=== PATIENT | female | born 1955 | race Caucasian/White ===

== ENCOUNTER 2018-11-16 14:57 | Inpatient (IN) ==
[2018-11-16] MEDS ORDERED: NS 1,000 ML IV SCH (15:15)
[2018-11-16] MEDS: LEVAQUIN 500 MG/D5W 500 MG/100 ML IVPB IV SCH ×2 (17:06→17:45)
[2018-11-16] MEDS ORDERED: NS 1,000 ML IV ONE (17:18)
[2018-11-16] MEDS ORDERED: HUMULIN R IV ONE (17:18)
[2018-11-16 17:35] LABS: ALLEN TEST YES; BE -9.5 mmoll (-3.0-3.0); BLOOD TYPE ARTERIAL; HCO3-(ACT) 17.4 mmoll (20.0-26.0); METHB 0.5 % (0.0-1.5); O2(CT) 20.1 mL/dL (15.0-23.0); O2HB 92.3 % (95.0-99.0); PCO2(98.6) 32 mmHg (35-45); PO2(98.6) 73 mmHg (60-100); SAMPLE BLOOD; SAO2 94.4 % (95.0-100.0); THB 15.5 g/dL (11.5-17.4)
[2018-11-16 17:40] LABS: MODALITY CANNULA
[2018-11-16 17:48] LABS: BASO# 0.05 X1000 (0.0-0.2); BASO% 0.3 % (0.0-0.8); EOS# 0.04 X1000 (0.0-0.7); EOS% 0.3 % (0.0-10.0); HEMATOCRIT 46.1 % (37.0-47.0); IMM GRAN# 0.12 X1000 (0.0-0.04); IMM GRAN% 0.8 % (0.0-0.5); LYMPH# 1.72 X1000 (1.2-3.4); LYMPH% 10.8 % (20.5-51.1); MCH 30.4 PG (27-31); MCHC 32.5 g/dL (33-37); MCV 93.3 FL (81-99); MONO# 1.61 X1000 (0.11-0.59); MONO% 10.1 % (1.7-9.3); MPV 11.5 FL (7.4-10.4); NEUT# 12.38 X1000 (1.4-6.5); NEUT% 77.7 % (42.2-75.2); PLT 393 X1000 (130-400); RBC 4.94 XMIL (4.2-5.4); RDW 13.5 % (11.5-14.5); WBC 15.92 X1000 (4.8-10.8)
[2018-11-16] MEDS ORDERED: TESSALON PO PRN (18:01)
[2018-11-16] MEDS ORDERED: ZOFRAN IV PRN (18:03)
[2018-11-16 18:19] LABS: CALCIUM 9.9 mg/dL (8.8-10.2); CREATININE 1.7 mg/dL (0.5-0.9); MAGNESIUM 1.7 mg/dL (1.5-2.7)
[2018-11-16] MEDS: NS 1,000 ML IV SCH (18:46)
[2018-11-16] MEDS: LOPRESSOR PO SCH ×2 (19:44→21:49)
[2018-11-16] MEDS: ATIVAN PO SCH ×2 (19:44→21:48)
[2018-11-16] MEDS ORDERED: HUMALOG SUBQ SCH (21:00)
[2018-11-16 21:10] LABS: CALCIUM 9.3 mg/dL (8.8-10.2)
[2018-11-16 21:13] LABS: AGAP 26; BUN 6 mg/dL (8-22); CHLORIDE 97 mmol/L (98-107); COSMO 261; CREATININE 0.6 mg/dL (0.5-0.9); ESTIMATED GFR > 60; GLUCOSE 176 mg/dL (70-104); POTASSIUM 4.8 mmol/L (3.5-5.1); SODIUM 129 mmol/L (136-145); TCO2 6 mmol/L (25-35)
[2018-11-16] MEDS: DULERA 100 MCG/5 MCG INHALER INH SCH (21:17)
--- NOTE | 2018-11-16 21:38 | HISTORY AND PHYSICAL ---
CHIEF COMPLAINT: Cough and fever. HISTORY OF PRESENT ILLNESS: The patient is a 63-year-old white female followed by Dr. Hendricks, who [facility] today with complaints of about a week history of illness. She has been feeling worse and had cough slightly productive, and in the last couple days had some fever. She has also developed over the past day and a half several episodes of emesis, without diarrhea. No significant abdominal pain. Does note on questioning that she has had uncontrolled diabetes mellitus, on one occasion where her blood sugar was extremely high, requiring admission. Her blood sugar was noted to be in the 700s at [facility] with a CO2 of 14 over there. White count was elevated there at 15,000 and she was noted to have a left pneumonia. MEDICATIONS: Prior to admission, Vasotec 20 mg p.o. daily; Lipitor 80 mg p.o. daily; [place] 5 one p.o. t.i.d. p.r.n. pain; Dulera 100 one puff b.i.d.; Tessalon Perles 100 mg p.o. t.i.d. p.r.n. cough; metformin ER 500 mg p.o. t.i.d.; Basaglar insulin 50 units subcutaneously at bedtime; Voltaren 75 mg p.o. b.i.d.; Ativan 0.5 mg p.o. b.i.d.; Lopressor 100 mg p.o. b.i.d.; omeprazole 40 mg p.o. daily; Flexeril 10 mg p.o. at bedtime p.r.n. ALLERGIES: Morphine. PAST MEDICAL HISTORY: 1. Insulin-requiring diabetes mellitus, with apparent history of this being uncontrolled in the past. 2. Hypertension. 3. Hypercholesterolemia. 4. GERD. 5. Possible COPD. 6. History of right breast cancer, status post lumpectomy and radiation treatments about 17 years ago. 7. History per old records of possible pancreatic pseudocyst or the like remotely. PAST SURGICAL HISTORY: 1. TAHBSO. 2. Right breast lumpectomy due to breast cancer. 3. . SOCIAL HISTORY: The patient is a longstanding smoker and continues to smoke. 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 Denies alcohol use. She is . She lives in [place]. She has children. FAMILY HISTORY: Noncontributory. REVIEW OF SYSTEMS: Negative except as above. PHYSICAL EXAMINATION: VITAL SIGNS: Temperature 98.8 degrees, pulse 122, respirations 17, blood pressure 157/65, O2 saturation on room air 90%. Weight 135, height 5 feet 6 inches tall. GENERAL: Elderly white female in mild distress. SKIN: Warm and dry. No rashes or skin breakdown. HEENT: PERRL, EOMI. Sclerae anicteric. OP: No major redness. NECK: No LA, TMG or bruits. CV: Tachycardia, regular rhythm. No murmur. LUNGS: Diminished breath sounds at the bases. Cannot rule out slightly worse on the left. Cannot rule out rare wheeze. ABDOMEN: Soft. Active bowel sounds. No mass or organomegaly. BREASTS/PELVIC/RECTAL: Deferred. EXTREMITIES: No calf tenderness, cords or edema. Peripheral pulses 2+. Mild OA changes noted in the hands and diffusely. NEUROLOGIC: CN 2 through 12 intact. Nonfocal. LABORATORY DATA: White count 15.92, hemoglobin 15, hematocrit 46.1, MCV 93, platelets 393,000, neutrophils 77, lymphocytes 10.8. ABG on 2 L shows pH 7.30, pCO2 of 32, pO2 of 73, HCO3 is 17, O2 saturation 94.4%. Lactate 1.7. Sodium 123, potassium 6.0, chloride 85, CO2 is 17, BUN 39, creatinine 1.7, anion gap 21, glucose 612, calcium 9.9, phosphorus 4.2, magnesium 1.7. Ammonia 18. Serum acetone level shows small. DIAGNOSTIC DATA: Chest x-ray by report from [facility] shows a pneumonia unilateral. ASSESSMENT: 1. Pneumonia. 2. Diabetic ketoacidosis. 3. Probable chronic obstructive pulmonary disease with ongoing smoking. 4. Hypertension. 5. Hypercholesterolemia. 6. History of pancreatic cyst, remote. 7. History of right breast cancer, status post lumpectomy and radiation treatment. 8. Pseudohyponatremia. 9. Hyperkalemia associated with diabetic ketoacidosis. PLAN: We will give her 1 L bolus of normal saline and we will continue normal saline at 150 mL/h. She has received 10 units IV regular insulin and we will give her sliding scale Humalog insulin q.4 hours. Monitor Accu-Chek q.2 hours and BMPs q.[address] will not place her on an insulin drip at this time unless we have difficulty improving her situation. She has received some Levaquin. We will continue that. We will check blood cultures x2 that have been ordered. Repeat chest x-ray. Continue her home medications of Tessalon, Vasotec, [place], Ativan, Lopressor, Dulera, NicoDerm patch, Prilosec. Give her Zofran as needed for nausea and vomiting, Gus. cc: MD Shai Watts MD
[2018-11-16] MEDS: HUMALOG SUBQ SCH (21:49)
[2018-11-17] MEDS ORDERED: D50W SYRINGE IV ONE (00:18)
[2018-11-17] MEDS: HUMALOG SUBQ SCH ×4 (00:32→14:11)
[2018-11-17] MEDS: NS 1,000 ML IV SCH ×4 (00:53→23:18)
[2018-11-17 05:58] LABS: BASO# 0.04 X1000 (0.0-0.2); BASO% 0.3 % (0.0-0.8); EOS% 0.8 % (0.0-10.0); HEMATOCRIT 44.7 % (37.0-47.0); HEMOGLOBIN 14.8 g/dL (12.0-16.0); IMM GRAN# 0.09 X1000 (0.0-0.04); IMM GRAN% 0.7 % (0.0-0.5); LYMPH# 2.74 X1000 (1.2-3.4); LYMPH% 21.7 % (20.5-51.1); MCH 31.4 PG (27-31); MCHC 33.1 g/dL (33-37); MCV 94.7 FL (81-99); MONO# 1.81 X1000 (0.11-0.59); MONO% 14.3 % (1.7-9.3); NEUT# 7.85 X1000 (1.4-6.5); NEUT% 62.2 % (42.2-75.2); PLT 306 X1000 (130-400); RBC 4.72 XMIL (4.2-5.4); RDW 13.8 % (11.5-14.5); WBC 12.63 X1000 (4.8-10.8)
[2018-11-17] MEDS: PRILOSEC PO SCH (06:11)
[2018-11-17 06:20] LABS: C REACTIVE PROT QUANT 78.32 mg/L (0.00-5.00); CALCIUM 8.9 mg/dL (8.8-10.2); CREATININE 1.3 mg/dL (0.5-0.9); POTASSIUM 5.1 mmol/L (3.5-5.1)
[2018-11-17] MEDS: DULERA 100 MCG/5 MCG INHALER INH SCH ×2 (07:50→21:15)
[2018-11-17] MEDS: VASOTEC PO SCH (09:42)
[2018-11-17] MEDS: LOPRESSOR PO SCH ×2 (09:42→20:05)
[2018-11-17] MEDS: NICODERM PATCH TD SCH (09:42)
[2018-11-17] MEDS: ATIVAN PO SCH ×2 (09:42→20:05)
[2018-11-17] MEDS ORDERED: POTASSIUM CHLORIDE 10 MEQ in NS 1,000 ML IV SCH (10:00)
--- NOTE | 2018-11-17 10:10 | Diag Imaging Result Doc PS360 ---
EXAM: CHEST-2 VIEWS INDICATION: hypoxia TECHNIQUE: 2 views COMPARISON: 04/16/2018 FINDINGS: There are stable metallic clips projecting over the right chest wall. The lungs are grossly clear. There is no discrete pleural fluid collection or pneumothorax. The cardiomediastinal silhouette and central vasculature are grossly unremarkable. IMPRESSION: No evidence of acute pathology by plain radiograph. Electronically signed by Grayson Vazquez 11/17/2018 10:08 AM
--- NOTE | 2018-11-17 10:17 | PROGRESS NOTE ---
DATE: 11/17/2018 SUBJECTIVE: Patient says she has had no nausea or vomiting and feels better overall. She is having a more productive cough, she says. OBJECTIVE: Vital signs: Afebrile, pulse 80, respirations 17, blood pressure 169/74, O2 saturation on 4 L 92%. Cardiovascular: RRR without murmur. Lungs: Distant breath sounds diffusely and diminished breath sounds at the lung bases with occasional wheezes bilaterally. Good air movement. Abdomen: Soft, nontender, nondistended. Extremities: No calf tenderness, cords, or edema. Neurologic: Nonfocal cranial nerves intact. Patient is alert and oriented x4. DIAGNOSTIC STUDIES: White count 12 down from 15 yesterday, hemoglobin 14.8, platelets 306,000. Sodium 130, potassium 5.1, chloride 102, CO2 of 13, BUN 37, creatinine 1.3, glucose 271, blood sugar is mainly in the 200s, calcium 8.9. C-reactive protein 78. Chest x-ray was done [facility], and I was told it showed unilateral pneumonia. She is supposed to go down now for another chest x-ray. They are taking her at this moment at my direction. ASSESSMENT: 1. Diabetic ketoacidosis (DKA), slowly improving. 2. Pneumonia. 3. Probable chronic obstructive pulmonary disease (COPD). 4. Tobacco abuse. 5. Hypertension. 6. Hypercholesterolemia. 7. History of pancreatic cyst, remote. 8. History of right breast cancer. 9. Pseudohyponatremia. 10. Hyperkalemia, improved. PLAN: Change the patient to normal saline with 10 mEq of KCl per liter and monitor her potassium and CO2 closely. We are going to feed her, as she is not having any difficulty with nausea and vomiting, and if she does well with that, that should allow her blood sugars to remain up so she will continue IV fluids and insulin. We are trying to keep from putting her on an IV insulin drip, but if unsuccessful, that will need to be done later on today. Continue q.4 h. BMPs and Accu-Cheks q.2 h.. Continue SSI with Accu-Cheks q.4 h. Blood cultures x2 are negative thus far. She remains on Levaquin and DuoNeb, and we will continue those in addition to Tessalon, Vasotec, [place], Ativan, Lopressor, Dulera, NicoDerm patch, and Prilosec. Await the results of the chest x- ray that is being done now. cc: MD Shai Watts MD
[2018-11-17 14:41] LABS: AGAP 8; BUN 26 mg/dL (8-22); CALCIUM 5.6 mg/dL (8.8-10.2); CHLORIDE 118 mmol/L (98-107); COSMO 290; CREATININE 0.7 mg/dL (0.5-0.9); ESTIMATED GFR > 60; GLUCOSE 164 mg/dL (70-104); POTASSIUM 6.3 mmol/L (3.5-5.1); SODIUM 141 mmol/L (136-145); TCO2 15 mmol/L (25-35)
[2018-11-17] MEDS ORDERED: HUMULIN R 100 UNIT in NS 99 ML IV SCH (15:07)
[2018-11-17] MEDS ORDERED: SODIUM PHOSPHATE 30 MMOL in D5W 250 ML IV PRN (15:07)
[2018-11-17] MEDS ORDERED: D50W SYRINGE IV PRN (15:07)
[2018-11-17] MEDS ORDERED: HUMULIN R IV ONE (15:07)
[2018-11-17] MEDS ORDERED: POTASSIUM CHLORIDE 20% LIQUID PO PRN (15:07)
[2018-11-17] MEDS: D5 NS 1,000 ML IV SCH ×2 (15:38→23:18)
[2018-11-17 15:42] LABS: PHOSPHORUS 1.6 mg/dL (2.7-4.5)
[2018-11-17] MEDS: LEVAQUIN 500 MG/D5W 500 MG/100 ML IVPB IV SCH (16:04)
[2018-11-17] MEDS: MAGNESIUM SULFATE 2 GM/S.W.I. 2 GM/50 ML IVPB IV PRN (16:12)
[2018-11-17 16:45] LABS: ALLEN TEST YES; BE -3.5 mmoll (-3.0-3.0); BLOOD TYPE ARTERIAL; HCO3-(ACT) 21.9 mmoll (20.0-26.0); METHB 0.5 % (0.0-1.5); O2(CT) 17.5 mL/dL (15.0-23.0); PCO2(98.6) 33 mmHg (35-45); PO2(98.6) 53 mmHg (60-100); SAMPLE BLOOD; SAO2 89.3 % (95.0-100.0); THB 14.1 g/dL (11.5-17.4)
[2018-11-17 16:47] LABS: MODALITY ROOM AIR
[2018-11-17 18:10] LABS: CALCIUM 8.6 mg/dL (8.8-10.2); CREATININE 1.4 mg/dL (0.5-0.9); POTASSIUM 4.5 mmol/L (3.5-5.1)
[2018-11-17 18:20] LABS: MAGNESIUM 1.7 mg/dL (1.5-2.7); PHOSPHORUS 1.9 mg/dL (2.7-4.5)
[2018-11-17 21:21] LABS: CALCIUM 8.4 mg/dL (8.8-10.2); CREATININE 1.5 mg/dL (0.5-0.9); MAGNESIUM 2.4 mg/dL (1.5-2.7); PHOSPHORUS 2.4 mg/dL (2.7-4.5); POTASSIUM 4.5 mmol/L (3.5-5.1)
[2018-11-17 21:22] LABS: ALLEN TEST YES; BE -4.9 mmoll (-3.0-3.0); BLOOD TYPE ARTERIAL; HCO3-(ACT) 20.9 mmoll (20.0-26.0); METHB 0.4 % (0.0-1.5); O2(CT) 17.6 mL/dL (15.0-23.0); O2HB 90.9 % (95.0-99.0); PCO2(98.6) 35 mmHg (35-45); PO2(98.6) 59 mmHg (60-100); SAMPLE BLOOD; SAO2 91.8 % (95.0-100.0); THB 13.8 g/dL (11.5-17.4); pH(98.6) 7.36 (7.35-7.45)
[2018-11-17 21:23] LABS: MODALITY CANNULA
[2018-11-17] MEDS: POTASSIUM CHLORIDE 10% LIQUID PO PRN (21:26)
[2018-11-18 01:47] LABS: MAGNESIUM 2.1 mg/dL (1.5-2.7); PHOSPHORUS 2.2 mg/dL (2.7-4.5)
[2018-11-18 02:37] LABS: CALCIUM 8.6 mg/dL (8.8-10.2); CREATININE 1.4 mg/dL (0.5-0.9); POTASSIUM 4.8 mmol/L (3.5-5.1)
[2018-11-18] MEDS: POTASSIUM CHLORIDE 10% LIQUID PO PRN ×5 (02:44→22:15)
[2018-11-18 03:18] LABS: URINE SOURCE CLEAN CATCH
[2018-11-18 03:52] LABS: BILIRUBIN URINE NEGATIVE (NEGATIVE); BLOOD URINE NEGATIVE (NEGATIVE); COLOR YELLOW; GLUCOSE URINE NEGATIVE (NEGATIVE); KETONE URINE NEGATIVE (NEGATIVE); LEUKOCYTES URINE TRACE (NEGATIVE); NITRITE URINE NEGATIVE (NEGATIVE); PH URINE 5.5; PROTEIN URINE TRACE mg/dL (NEGATIVE); SP GRAVITY URINE 1.002; TURBIDITY URINE CLEAR (CLEAR); UROBILINOGEN URINE NORMAL (NORMAL)
[2018-11-18 03:53] LABS: UR EPITHELIAL CELLS <10 /HPF (<10); URINE BACTERIA 4+ /HPF; URINE RBC <10 /HPF (<10)
[2018-11-18 05:19] LABS: ALLEN TEST YES; BLOOD TYPE ARTERIAL; HCO3-(ACT) 20.8 mmoll (20.0-26.0); METHB 0.3 % (0.0-1.5); O2(CT) 19.1 mL/dL (15.0-23.0); O2HB 91.5 % (95.0-99.0); PCO2(98.6) 36 mmHg (35-45); PO2(98.6) 59 mmHg (60-100); SAMPLE BLOOD; SAO2 92.3 % (95.0-100.0); THB 14.9 g/dL (11.5-17.4); pH(98.6) 7.35 (7.35-7.45)
[2018-11-18 05:21] LABS: MODALITY CANNULA
[2018-11-18 05:27] LABS: BASO# 0.04 X1000 (0.0-0.2); BASO% 0.3 % (0.0-0.8); EOS% 0.8 % (0.0-10.0); HEMATOCRIT 43.1 % (37.0-47.0); IMM GRAN# 0.07 X1000 (0.0-0.04); IMM GRAN% 0.6 % (0.0-0.5); LYMPH# 2.63 X1000 (1.2-3.4); LYMPH% 21.6 % (20.5-51.1); MCH 30.2 PG (27-31); MCHC 32.5 g/dL (33-37); MCV 92.9 FL (81-99); MONO# 1.66 X1000 (0.11-0.59); MONO% 13.6 % (1.7-9.3); MPV 11.2 FL (7.4-10.4); NEUT# 7.68 X1000 (1.4-6.5); NEUT% 63.1 % (42.2-75.2); PLT 314 X1000 (130-400); RBC 4.64 XMIL (4.2-5.4); RDW 13.8 % (11.5-14.5); WBC 12.18 X1000 (4.8-10.8)
[2018-11-18 05:44] LABS: MAGNESIUM 1.9 mg/dL (1.5-2.7); PHOSPHORUS 2.2 mg/dL (2.7-4.5)
[2018-11-18 05:45] LABS: CALCIUM 8.4 mg/dL (8.8-10.2); CREATININE 1.2 mg/dL (0.5-0.9); POTASSIUM 4.8 mmol/L (3.5-5.1)
[2018-11-18] MEDS: PRILOSEC PO SCH (05:59)
[2018-11-18] MEDS: NS 1,000 ML IV SCH ×3 (07:21→21:15)
[2018-11-18] MEDS: D5 NS 1,000 ML IV SCH ×3 (07:21→22:43)
[2018-11-18] MEDS: VASOTEC PO SCH (09:20)
[2018-11-18] MEDS: ATIVAN PO SCH ×2 (09:20→21:22)
[2018-11-18] MEDS: NICODERM PATCH TD SCH (09:20)
[2018-11-18] MEDS: LOPRESSOR PO SCH ×2 (09:20→21:22)
[2018-11-18 09:27] LABS: MAGNESIUM 1.9 mg/dL (1.5-2.7)
[2018-11-18 09:41] LABS: O2HB 88.6 % (95.0-99.0)
[2018-11-18 09:42] LABS: CALCIUM 8.4 mg/dL (8.8-10.2); CREATININE 1.2 mg/dL (0.5-0.9); POTASSIUM 4.9 mmol/L (3.5-5.1)
[2018-11-18] MEDS: DUONEB (A & A) INH PRN ×3 (11:19→22:23)
[2018-11-18] MEDS: DULERA 100 MCG/5 MCG INHALER INH SCH ×2 (11:19→22:22)
[2018-11-18 13:46] LABS: MAGNESIUM 1.6 mg/dL (1.5-2.7); PHOSPHORUS 2.3 mg/dL (2.7-4.5)
[2018-11-18 13:52] LABS: CALCIUM 8.2 mg/dL (8.8-10.2); CREATININE 1.1 mg/dL (0.5-0.9); POTASSIUM 4.6 mmol/L (3.5-5.1)
[2018-11-18] MEDS: MAGNESIUM SULFATE 2 GM/S.W.I. 2 GM/50 ML IVPB IV PRN (14:31)
[2018-11-18 17:59] LABS: MAGNESIUM 4.3 mg/dL (1.5-2.7); PHOSPHORUS 2.1 mg/dL (2.7-4.5)
[2018-11-18 18:02] LABS: CALCIUM 8.5 mg/dL (8.8-10.2); CREATININE 1.2 mg/dL (0.5-0.9); POTASSIUM 4.8 mmol/L (3.5-5.1)
[2018-11-18] MEDS: LEVAQUIN 500 MG/D5W 500 MG/100 ML IVPB IV SCH (18:19)
[2018-11-18] MEDS: NORCO-5 PO PRN (19:09)
[2018-11-18] MEDS: BASAGLAR SUBQ SCH (21:21)
--- NOTE | 2018-11-18 21:26 | PROGRESS NOTE ---
DATE: 11/18/2018 63-year-old white female patient of Dr. Hendricks admitted over the weekend for COPD exacerbation, DKA. I appreciate Dr. Grigsby's input. Patient was seen in [facility] clinic. Initial blood sugar 700. She was also azotemic. Patient is on DKA protocol on IV fluids and insulin drip 1.5 units/hour. REVIEW OF SYSTEMS: Patient is getting better, some coughing, wheezing and no chest pain. Rest of review of systems are normal. PAST MEDICAL HISTORY: Reviewed. PAST SURGICAL HISTORY: Reviewed. MEDICINES: Reviewed. ALLERGIES: Morphine. EXAM: Patient has fever 100.6, pulse is 73, blood pressure is 140/94.HEENT: Atraumatic, normocephalic. Pupils equal, reactive to light. Neck: Supple. No lymphadenopathy. Chest: Bilateral air entry. Heart: Sounds are regular. Belly: Is soft, nontender. No obvious deficits. INVESTIGATIONS: CBC. White cell count 12, hematocrit 43, platelets 314,000. ABG pH is 7.35, pCO2 36, PO2 59 on 28%. Sodium 128, potassium 4.9, BUN 21, creatinine 1.2, glucose 250, sugar is 400, phosphorus 2.1. Urinalysis clear. Blood cultures were negative. Chest x-ray, no evidence of acute pathology noted. ASSESSMENT AND PLAN: 1. Diabetic ketoacidosis improving. Continue IV fluids and insulin drip. Will start Lantus 35 units at bedtime 9 o'clock and discontinue insulin drip in the morning. 2. Decrease IV fluids 80 mL/hour. 3. Chronic obstructive pulmonary disease with low-grade fever, elevated white cell count. Patient was getting IV Levaquin. Chronic tobacco abuse on Nicotrol patch. 4. Hypertension on Vasotec 20 mg daily. 5. Chronic anxiety Ativan 0.5 p.o. b.i.d. 6. Chronic obstructive pulmonary disease start on Spiriva, will slowly start on home medicines tomorrow metformin, Lipitor. Discussed the plan of care with the patient . LEVEL OF DOCUMENTATION: 35 minutes. cc: MD Shai Graham MD
[2018-11-18 21:38] LABS: PHOSPHORUS 2.5 mg/dL (2.7-4.5)
[2018-11-18 21:44] LABS: CREATININE 1.2 mg/dL (0.5-0.9); POTASSIUM 4.5 mmol/L (3.5-5.1)
[2018-11-18] MEDS: SPIRIVA INH SCH (22:22)
[2018-11-19 03:02] LABS: CREATININE 1.1 mg/dL (0.5-0.9); POTASSIUM 4.7 mmol/L (3.5-5.1)
[2018-11-19] MEDS: POTASSIUM CHLORIDE 10% LIQUID PO PRN (03:32)
[2018-11-19 05:45] LABS: BASO# 0.04 X1000 (0.0-0.2); BASO% 0.5 % (0.0-0.8); EOS# 0.05 X1000 (0.0-0.7); EOS% 0.6 % (0.0-10.0); HEMATOCRIT 46.1 % (37.0-47.0); HEMOGLOBIN 15.4 g/dL (12.0-16.0); IMM GRAN# 0.04 X1000 (0.0-0.04); IMM GRAN% 0.5 % (0.0-0.5); LYMPH# 1.98 X1000 (1.2-3.4); LYMPH% 23.5 % (20.5-51.1); MCH 31.4 PG (27-31); MCHC 33.4 g/dL (33-37); MCV 94.1 FL (81-99); MONO# 1.26 X1000 (0.11-0.59); MONO% 14.9 % (1.7-9.3); MPV 11.5 FL (7.4-10.4); NEUT# 5.06 X1000 (1.4-6.5); PLT 213 X1000 (130-400); RDW 14.5 % (11.5-14.5); WBC 8.43 X1000 (4.8-10.8)
[2018-11-19] MEDS: PRILOSEC PO SCH ×2 (05:52→06:39)
[2018-11-19 06:03] LABS: CALCIUM 7.8 mg/dL (8.8-10.2); CREATININE 1.1 mg/dL (0.5-0.9); MAGNESIUM 1.7 mg/dL (1.5-2.7); PHOSPHORUS 2.4 mg/dL (2.7-4.5); POTASSIUM 5.3 mmol/L (3.5-5.1)
[2018-11-19] MEDS: D5 NS 1,000 ML IV SCH ×2 (06:39→14:36)
[2018-11-19] MEDS ORDERED: CALCIUM GLUCONATE 1 GM in NS 50 ML IV ONE (07:31)
[2018-11-19] MEDS ORDERED: NEUTRA-PHOS PO ONE (07:31)
[2018-11-19] MEDS: DUONEB (A & A) INH PRN (07:51)
[2018-11-19] MEDS: DULERA 100 MCG/5 MCG INHALER INH SCH ×2 (07:52→19:10)
[2018-11-19] MEDS: LOPRESSOR PO SCH ×2 (08:52→20:05)
[2018-11-19] MEDS: VASOTEC PO SCH (08:52)
[2018-11-19] MEDS: ATIVAN PO SCH ×2 (08:52→20:05)
[2018-11-19] MEDS: NS 1,000 ML IV SCH (08:52)
[2018-11-19] MEDS: NICODERM PATCH TD SCH (08:52)
[2018-11-19] MEDS: HUMALOG SUBQ SCH ×3 (13:12→20:06)
[2018-11-19] MEDS: LEVAQUIN 500 MG/D5W 500 MG/100 ML IVPB IV SCH ×2 (16:46→18:06)
[2018-11-19] MEDS: SPIRIVA INH SCH (19:10)
--- NOTE | 2018-11-19 19:20 | PROGRESS NOTE ---
DATE: 11/19/2018 SUBJECTIVE: The patient is doing much better. She is off on insulin drip, started on Lantus last night. REVIEW OF SYSTEMS: None reported. 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 OBJECTIVE: Vital Signs: Temp is 98, pulse is 79, blood pressure is 140/74. HEENT: Within normal limits. Neck: Supple. No lymphadenopathy. Chest: Bilateral air entry. Heart: Heart sounds are regular. Abdomen: Belly is soft, nontender. Good bowel sounds. No obvious deficits. INVESTIGATIONS: CBC: White cell count 8.4, hematocrit 46, platelets 140 SMA-7 : Sodium 129 potassium 5.3, BUN 18 creatinine 1.1, glucose 186, phosphorus 2.4. Magnesium was normal. ASSESSMENT AND PLAN: 1. Diabetic ketoacidosis, improving. Decrease IV fluids to 50 mL/hour. 2. Continue on the Lantus and sliding scale with insulin coverage. Metoprolol 100 p.o. b.i.d. 3. Hypertension on Vasotec 20 daily and COPD with bronchitis on IV Levaquin. 4. COPD, quit smoking. Bronchodilators, IV Levaquin. 5. DVT and GI prophylaxis. As listed on the chart. 6. Hypophosphatemia. We will replace with Neutra-Phos and patient was not using home oxygen, and repeat the BMP in the morning. LEVEL OF DOCUMENTATION: 25 minutes. cc: MD Shai Graham MD MTDD
[2018-11-19] MEDS: BASAGLAR SUBQ SCH (20:05)
[2018-11-20] MEDS: SPIRIVA INH SCH ×3 (00:35→23:08)
[2018-11-20] MEDS: NS 1,000 ML IV SCH (03:48)
[2018-11-20] MEDS: PRILOSEC PO SCH (06:03)
[2018-11-20 06:04] LABS: CREATININE 1.1 mg/dL (0.5-0.9); POTASSIUM 4.5 mmol/L (3.5-5.1)
[2018-11-20] MEDS: HUMALOG SUBQ SCH ×4 (06:05→20:21)
[2018-11-20] MEDS ORDERED: PREVNAR 13 IM ONE (07:24)
[2018-11-20] MEDS: DULERA 100 MCG/5 MCG INHALER INH SCH ×2 (07:45→19:40)
[2018-11-20] MEDS: NICODERM PATCH TD SCH (09:19)
[2018-11-20] MEDS: ATIVAN PO SCH ×2 (09:19→20:21)
[2018-11-20] MEDS: VASOTEC PO SCH (09:19)
[2018-11-20] MEDS: LOPRESSOR PO SCH ×2 (09:19→20:21)
[2018-11-20] MEDS: NORCO-5 PO PRN ×2 (11:39→20:21)
[2018-11-20] MEDS: LEVAQUIN 500 MG/D5W 500 MG/100 ML IVPB IV SCH ×2 (16:49→17:13)
--- NOTE | 2018-11-20 19:27 | PROGRESS NOTE ---
DATE: 11/20/2018 SUBJECTIVE: The patient is still coughing and wheezing. Not taking oxygen. Blood sugars were coming down off on IV fluids. Insulin drip, started on Lantus 35 units at bedtime. Blood sugar is around 130. EXAMINATION: Temp is 98, pulse is 60, blood pressure is 150/71.HEENT: Within normal limits. Neck: Supple. No lymphadenopathy. Chest: Wheezing. Heart: Heart sounds distant. Abdomen: Belly is soft, nontender. No obvious deficits noted. LABORATORY: SMA-7: Sodium 132, potassium 4.5, chloride 100, BUN 22, creatinine 1.1, glucose 167. Blood cultures were negative. ASSESSMENT AND PLAN: 1. DKA is improving, off IV fluids, insulin drip. Continue diet and Lantus and check the A1c in the morning. 2. COPD exacerbation, on IV Levaquin, bronchodilators with Dulera and Spiriva. Will change to the Trilogy in the morning. 3. We will evaluate for home oxygen. 4. Hypertension, on Vasotec 20 mg daily and Lopressor 100 p.o. b.i.d. and with evaluation for home oxygen and follow up on blood sugars in next 24 hours and also initiate vaccination protocol prior to the discharge. LEVEL OF DOCUMENTATION: 25 minutes. cc: MD Shai Graham MD MTDD
[2018-11-20] MEDS ORDERED: BLISTEX MEDICATED BERRY LIP BALM TOP PRN (19:40)
[2018-11-20] MEDS: BASAGLAR SUBQ SCH (20:21)
[2018-11-21 05:37] LABS: ALLEN TEST YES; BE -3.1 mmoll (-3.0-3.0); BLOOD TYPE ARTERIAL; HCO3-(ACT) 22.4 mmoll (20.0-26.0); O2(CT) 18.3 mL/dL (15.0-23.0); O2HB 93.5 % (95.0-99.0); PCO2(98.6) 35 mmHg (35-45); PO2(98.6) 63 mmHg (60-100); SAMPLE BLOOD; SAO2 95.5 % (95.0-100.0); THB 13.9 g/dL (11.5-17.4); pH(98.6) 7.39 (7.35-7.45)
[2018-11-21 05:47] LABS: BASO# 0.03 X1000 (0.0-0.2); BASO% 0.3 % (0.0-0.8); EOS# 0.07 X1000 (0.0-0.7); EOS% 0.8 % (0.0-10.0); HEMOGLOBIN 14.6 g/dL (12.0-16.0); IMM GRAN# 0.02 X1000 (0.0-0.04); IMM GRAN% 0.2 % (0.0-0.5); LYMPH# 3.78 X1000 (1.2-3.4); LYMPH% 41.2 % (20.5-51.1); MCH 30.2 PG (27-31); MCHC 32.4 g/dL (33-37); MCV 93.2 FL (81-99); MONO# 1.17 X1000 (0.11-0.59); MONO% 12.7 % (1.7-9.3); MPV 11.9 FL (7.4-10.4); NEUT# 4.11 X1000 (1.4-6.5); NEUT% 44.8 % (42.2-75.2); PLT 230 X1000 (130-400); RBC 4.83 XMIL (4.2-5.4); RDW 14.5 % (11.5-14.5); WBC 9.18 X1000 (4.8-10.8)
[2018-11-21] MEDS: PRILOSEC PO SCH (06:03)
[2018-11-21 06:09] LABS: CALCIUM 7.8 mg/dL (8.8-10.2); CREATININE 1.2 mg/dL (0.5-0.9); POTASSIUM 4.6 mmol/L (3.5-5.1)
[2018-11-21 06:14] LABS: HEMOGLOBIN A1C 9.1 % (4.8-6.0)
[2018-11-21] MEDS: HUMALOG SUBQ SCH ×4 (06:14→19:59)
[2018-11-21 06:55] LABS: MODALITY CANNULA
[2018-11-21] MEDS: DULERA 100 MCG/5 MCG INHALER INH SCH ×2 (07:48→19:32)
[2018-11-21] MEDS: LOPRESSOR PO SCH ×2 (08:41→19:59)
[2018-11-21] MEDS: ATIVAN PO SCH (08:41)
[2018-11-21] MEDS: VASOTEC PO SCH (08:41)
[2018-11-21] MEDS: NICODERM PATCH TD SCH (08:42)
[2018-11-21] MEDS: LEVAQUIN 500 MG/D5W 500 MG/100 ML IVPB IV SCH (17:15)
[2018-11-21] MEDS: SPIRIVA INH SCH (19:32)
--- NOTE | 2018-11-21 19:46 | PROGRESS NOTE ---
DATE: 11/21/2018 SUBJECTIVE: The patient is a little better and still wheezing, requiring home oxygen. No complaints. OBJECTIVE: Vital Signs: Temperature 98 degrees, pulse 78, blood pressure 134/64, room air 92%. Chest: Wheezing. Heart: Sounds are regular. Abdomen: Belly is soft, nontender. Neurological: No obvious neurological deficits. INVESTIGATIONS: Blood cultures are negative. LABS: CBC: White cell count 9.1, hematocrit 45, platelets 230,000. ABG, pH is 3.9, pCO2 35, PO2 63 on 28%. SMA 7, sodium 131, potassium 4.6, BUN 26, creatinine 1.2. Glucose 289. Calcium 7.8. ASSESSMENT AND PLAN: 1. Diabetic ketoacidosis is better. 2. Chronic obstructive pulmonary disease evaluation for home oxygen. Continue pulse oximetry and ambulation. 3. Discussed with the patient about quit smoking. 4. Chronic anxiety. Increasing Ativan for regular does and will change the medicines for the chronic obstructive pulmonary disease with Telergy. 5. Initiate vaccination protocol prior to the discharge. Pneumococcal vaccine. LEVEL OF DOCUMENTATION: 25 minutes. cc: MD Shai Graham MD
[2018-11-21] MEDS: BASAGLAR SUBQ SCH (19:59)
[2018-11-21] MEDS: NORCO-5 PO PRN (20:07)
[2018-11-21] MEDS ORDERED: ATIVAN PO SCH (21:00)
[2018-11-22] MEDS: HUMALOG SUBQ SCH ×2 (06:21→11:21)
[2018-11-22] MEDS: PRILOSEC PO SCH (06:21)
[2018-11-22] MEDS: DULERA 100 MCG/5 MCG INHALER INH SCH (07:22)
[2018-11-22 08:06] VITALS: BP 135/56
[2018-11-22] MEDS: NICODERM PATCH TD SCH (08:24)
[2018-11-22] MEDS: LOPRESSOR PO SCH (08:24)
[2018-11-22] MEDS: ATIVAN PO SCH (08:24)
[2018-11-22] MEDS: VASOTEC PO SCH (08:24)
--- NOTE | 2018-11-23 16:14 | DISCHARGE SUMMARY ---
ADMISSION DATE: 11/16/2018 DISCHARGE DATE: 11/22/2018 DISCHARGING DIAGNOSIS: 1. Diabetic ketoacidosis due to noncompliance. Blood sugar 750, A1c 9.1. SECONDARY DIAGNOSIS: 1. Chronic obstructive pulmonary disease. 2. Hypertension, hyperlipidemia, acid reflux disease. 3. History of right breast cancer status post lumpectomy and radiation 17 years ago. 4. History of pancreatic pseudocyst. BRIEF HISTORY: Please see the H and P that was done by Dr. Grigsby. In brief, she is a 63-year- old white female patient of Dr. Hendricks was admitted directly from medical surgical with acute COPD exacerbation associated with a DKA with hyponatremia, azotemia. HOSPITAL COURSE: 1. Patient was admitted in [facility] for DKA protocol. Follow up on blood sugars were doing very well. Electrolytes were replaced appropriately. 2. Patient was given oxygen, bronchodilators. Upon ambulation oxygen level remains normal. 3. Patient is advised to quit smoking, continue to monitor blood sugars with a Freestyle [place]. LABS: At the time of discharge. CBC, white cell count 9.1, hematocrit 45, platelets 230,000. ABG pH is 7.39, pCO2 35, PO2 63 on 28%. SMA 7 sodium 131, potassium 4.6, chloride 97, BUN 26, creatinine 1.2. A1c 9.1. Blood cultures were negative. Chest x-ray, severe COPD. DISCHARGE INSTRUCTIONS: 1. Pneumococcal vaccine 13 was given 11/21/2018. 2. Quit smoking. 3. Dulera 1 puff p.o. b.i.d., Spiriva MDI 1 puff daily, Vasotec 20 daily, Flexeril 10 mg as needed, Lipitor 80 daily, insulin Lantus 50 units at bedtime, metformin 500 t.i.d., metoprolol 100 p.o. b.i.d., Prilosec 40 daily, lorazepam 0.5 in the morning 1 mg at bedtime, DuoNeb nebulizers as needed. 4. Follow up with Dr. Hendricks next week. The patient will give an excuse for work for next 10 days. cc: MD Shai Graham MD
== END 2018-11-22 11:30 | disposition home or self-care (01) | DRG 638 ==
LOC: DIRADM 14:57 → 3S 16:10
PROVIDERS: ADMIT Internal Medicine; ATTEND Internal Medicine
CPT/HCPCS: 71020; 71046; 80048; 81001; 82009; 82140; 82805; 82948; 83036; 83735; 84100; 84132; 85025; 86140; 87040; 90670; 94640; 94761; A9270; J0610; J1815; J1956; J2405; J3475; J3480; J7030; XXXXX

== ENCOUNTER 2019-01-28 14:46 | Inpatient (IN) ==
[2019-01-28] MEDS ORDERED: ATIVAN PO PRN (16:38)
--- NOTE | 2019-01-28 16:48 | EKG Report ---
Test Performed on : 01/28/2019 4:37:36 PM Test Reason : PNA Blood Pressure : / mmHG Vent. Rate : 068 BPM Atrial Rate : 068 BPM P-R Int : 176 ms QRS Dur : 100 ms QT Int : 438 ms P-R-T Axes : 041 007 096 degrees QTc Int : 465 ms Normal sinus rhythm. Minimal voltage criteria for LVH, may be normal variant Nonspecific T wave abnormality Abnormal ECG When compared with ECG of 16-APR-2018 16:30, No significant change was found Confirmed by Caden MAK, Ovi Camara ([id number]) on 01/29/2019 10:20:22 AM
[2019-01-28 16:57] LABS: ALLEN TEST YES; BE -0.9 mmoll (-3.0-3.0); BLOOD TYPE ARTERIAL; HCO3-(ACT) 23.9 mmoll (20.0-26.0); METHB 0.1 % (0.0-1.5); O2(CT) 17.9 mL/dL (15.0-23.0); PCO2(98.6) 41 mmHg (35-45); PO2(98.6) 61 mmHg (60-100); SAMPLE BLOOD; SAO2 92.4 % (95.0-100.0); THB 14.6 g/dL (11.5-17.4); pH(98.6) 7.38 (7.35-7.45)
[2019-01-28 16:58] LABS: MODALITY ROOM AIR
[2019-01-28 17:03] LABS: O2HB 87.5 % (95.0-99.0)
[2019-01-28] MEDS ORDERED: DUONEB (A & A) INH PRN ×2 (17:41→17:45)
[2019-01-28] MEDS ORDERED: NON-FORMULARY MED (Fluticasone/Umeclidin/Vilanter [Trelegy Ellipta 100-62.5-25] 1 EA) Inhalation PRN (17:45)
[2019-01-28] MEDS ORDERED: NORCO-5 PO PRN (17:45)
[2019-01-28] MEDS ORDERED: TESSALON PO PRN (17:45)
[2019-01-28] MEDS: SOLU-MEDROL IV SCH (18:17)
[2019-01-28] MEDS: ROCEPHIN 1 GM in NS 50 ML IV SCH (18:17)
--- NOTE | 2019-01-28 18:55 | Diag Imaging Result Doc PS360 ---
EXAM: CT THORAX W/O CONTRAST 01/28/2019 HISTORY: PNA TECHNIQUE: This exam was performed using automated exposure control, adjustment of mA or kV according to patient size, and/or use of iterative reconstruction technique. COMMENT: There are small calcified and noncalcified nodes in the mediastinum. There is fairly extensive coronary calcification. There are no abnormal fluid collections. There is some generalized peribronchial thickening and tree-in-bud opacities throughout both lungs. There is platelike opacity and denser alveolar consolidation present in the lingula. There are no previous thoracic studies available for comparison, however in comparison with the previous abdominal study of 10/18/2017 the lingular opacities were not present previously. There is a groundglass appearing nodular opacity on image 92 of the left lower lobe which was also not likely present at the time the previous study. The regional skeleton appears to be intact. IMPRESSION: Lingular atelectasis and/or pneumonia with probable generalized bronchiolitis. Electronically signed by Arian Kim 01/28/2019 6:52 PM
[2019-01-28] MEDS: LEVAQUIN 750 MG/D5W 750 MG/150 ML IVPB IV SCH (18:58)
[2019-01-28 19:17] LABS: BASO# 0.08 X1000 (0.0-0.2); BASO% 0.5 % (0.0-0.8); EOS# 0.33 X1000 (0.0-0.7); EOS% 2.2 % (0.0-10.0); HEMATOCRIT 43.2 % (37.0-47.0); HEMOGLOBIN 14.4 g/dL (12.0-16.0); IMM GRAN# 0.03 X1000 (0.0-0.04); IMM GRAN% 0.2 % (0.0-0.5); LYMPH# 5.76 X1000 (1.2-3.4); LYMPH% 38.9 % (20.5-51.1); MCH 30.4 PG (27-31); MCHC 33.3 g/dL (33-37); MCV 91.1 FL (81-99); MONO# 1.23 X1000 (0.11-0.59); MONO% 8.3 % (1.7-9.3); MPV 11.6 FL (7.4-10.4); NEUT# 7.36 X1000 (1.4-6.5); NEUT% 49.9 % (42.2-75.2); PLT 219 X1000 (130-400); RBC 4.74 XMIL (4.2-5.4); WBC 14.79 X1000 (4.8-10.8)
[2019-01-28] MEDS ORDERED: DOXYCYCLINE PO ONE (19:23)
[2019-01-28] MEDS: DUONEB (A & A) INH SCH ×2 (19:30→22:52)
[2019-01-28 19:37] LABS: ALB/GLOB RATIO 1.2; ALBUMIN 3.6 g/dL (3.5-5.0); CALCIUM 8.3 mg/dL (8.8-10.2); CREATININE 1.1 mg/dL (0.5-0.9); POTASSIUM 4.4 mmol/L (3.5-5.1); TOTAL BILIRUBIN 0.18 mg/dL (0.20-1.00); TOTAL PROTEIN 6.6 g/dL (6.3-8.3)
--- NOTE | 2019-01-28 19:39 | Diag Imaging Result Doc PS360 ---
EXAM: CHEST-2 VIEWS 01/28/2019 HISTORY: PNA TECHNIQUE: PA and lateral chest COMMENT: There has been some slight improvement in the lingular opacity present on 01/23/2019. No additional abnormalities are present. IMPRESSION: Improvement in atelectasis and/or pneumonia in the lingula. Electronically signed by Arian Kim 01/28/2019 7:37 PM
[2019-01-28] MEDS: DULERA 100 MCG/5 MCG INHALER INH SCH (20:30)
--- NOTE | 2019-01-28 21:01 | HISTORY AND PHYSICAL ---
HISTORY OF PRESENT ILLNESS: Ms. Rivera is a 63-year-old white female, a known case of COPD, who has been a chronic heavy smoker, is admitted with pneumonia in the left lingular area. She has been having a nonresolving pneumonia and has significant weight loss, about 20 pounds of weight loss in the last 2 months. She had history of lumpectomy performed from the right breast for cancer, and thereafter, she received radiation. This was done by Dr. Torsten giraldo at [facility]. Since then, she did not have problems. Known case of hypertension. She had a pancreatic biopsy for a benign cyst, and after attack of severe pancreatitis, she developed insulin-dependent diabetes. REVIEW OF SYSTEMS: Otherwise unremarkable except for presence of persistent cough, weight loss, and some shortness of breath. MEDICATIONS: Include lorazepam as well as [place] and insulin. OTHER PAST MEDICAL HISTORY: She has degenerative disk disease in the lumbar spine. PHYSICAL EXAMINATION: GENERAL: The patient is alert. VITAL SIGNS: Reveal temperature normal, pulse 88 per minute, respiratory rate 20 per minute, blood pressure 130/80 in the office. HEENT: Head normocephalic. Pupils PERRLA. Fundus examination normal. Neck supple. JVP normal. ENT examination unremarkable. There is no evidence of lymphadenopathy, thyroid enlargement, pedal edema, calf tenderness, anemia, cyanosis, or clubbing. Pedal pulses are well felt. BREASTS: Exam not done today. She did not have a mammogram in a long time. LUNGS: Reveal some expiratory wheezing bilaterally. HEART: PMI in the normal position. Heart sounds normal. No murmur, gallop, or rub noted. ABDOMEN: Nondistended. Hernial orifices normal. No guarding, rigidity, free fluid, masses, or organomegaly. Bowel sounds normal. RECTAL: Deferred. CENTRAL NERVOUS SYSTEM: Higher functions normal. Cranial nerves normal. Motor and sensory system examination unremarkable. Deep tendon reflexes normal. Plantars downgoing. Skull and spine examination normal for age. No cerebellar signs of meningeal irritation. LOCOMOTOR: Unremarkable. SKIN: Unremarkable. IMPRESSION: 1. Unresolving pneumonia on the left side in the left lingular area. 2. Mild chronic obstructive pulmonary disease. 3. History of chronic heavy smoking. 4. History of weight loss. 5. Maturity-onset insulin-dependent diabetes. 6. History of right breast cancer with lumpectomy in 2001. PLAN: Start IV antibiotics as well as get a CT scan and get a pulmonary consult with Dr. De Paz. cc: Shai Hendricks MD
[2019-01-28] MEDS: ATIVAN PO SCH (21:08)
[2019-01-28] MEDS: BIDEX PO SCH (21:08)
[2019-01-28] MEDS: LOPRESSOR PO SCH (21:08)
[2019-01-28] MEDS: GLUCOPHAGE XR PO SCH (21:08)
[2019-01-28] MEDS: LANTUS INSULIN SUBQ SCH (21:09)
[2019-01-28] MEDS: HUMALOG SUBQ SCH (21:09)
[2019-01-28] MEDS: FLEXERIL PO PRN (21:13)
--- NOTE | 2019-01-29 00:11 | PULMONOLOGY CONSULTATION ---
DATE: 01/28/2019 REQUESTING PHYSICIAN: Shai Hendricks MD. REASON FOR CONSULTATION: Persistent pneumonia. HISTORY OF PRESENT ILLNESS: Ms. Rivera is a 63-year-old white female with a [id number] history for tobacco, ongoing tobacco use, who has had difficulty with weight loss of about 20 pounds over the last 5 months. The patient was admitted to the hospital for 6 days in November with an episode of diabetic ketoacidosis. She was discharged only to require readmission a week later with an allergic reaction to an JACKY inhibitor. The patient has had cough without significant sputum production, and a chest x-ray was performed 01/13 which revealed a new lingular pneumonia. She has received antibiotics with marginal but incomplete resolution. The patient reports occasional sputum production. She denies fevers or chills. She reports marginal compliance with her insulin, but her hemoglobin A1c remains significantly elevated. She denies hemoptysis. PAST MEDICAL HISTORY/PROBLEM LIST: 1. 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 2. History of DKA. 3. COPD with ongoing tobacco use. 4. Hypertension. 5. Hypercholesterolemia. 6. Gastroesophageal reflux. 7. Remote history of breast cancer and lumpectomy. 8. Status post total abdominal hysterectomy and bilateral salpingo-oophorectomy. SOCIAL HISTORY: Occasional alcohol use. Ongoing tobacco use. She continues to be active and work. FAMILY HISTORY: Her mother with dementia. Her father with "strangulation" in his sleep at the age of 40. She has limited details of his because mother and father were at the time, and he did not live in the house. REVIEW OF SYSTEMS: As noted in the HPI. PHYSICAL EXAMINATION: General: A thin white female who appears her stated age, in no distress. Vital Signs: The patient is afebrile, blood pressure 185/76, heart rate 67, respiratory rate 16, oxygen saturation 100%. HEENT: Pupils are equal and reactive. Oropharynx is clear. Neck: Supple. Chest: Rhonchi bilaterally with prolonged expiratory phase. Cardiac: S1, S2. Abdomen: Soft. Extremities: Chronic vascular disease. IMAGING STUDIES: CT scan of the thorax was performed shortly after admission and reveals bronchial thickening bilaterally, ground-glass nodule in the left lower lobe, and lingular pneumonia. LABORATORIES: White blood count 14.8, hemoglobin 14.4, platelet count 219,000. Arterial blood gas reveals a pH of 7.38, pCO2 of 41, pO2 of 61. IMPRESSION: A 63-year-old with: 1. Lingular pneumonia. 2. Leukocytosis. 3. Chronic obstructive pulmonary disease. 4. Nicotine addiction with ongoing tobacco use. 5. Solitary pulmonary nodule. 6. Abnormal weight loss. 7. I failed to mention above that CT scan does reveal a dilated stomach with a large amount of food debris. The patient may have a component of gastroparesis due to long-standing diabetes mellitus. 8. The patient also has poorly controlled diabetes with an elevation in her hemoglobin A1c. 9. Her chest x-rays demonstrate some slow improvement in the lingular opacity, and she may have a drug-resistant pathogen. RECOMMENDATIONS: 1. Encourage smoking cessation. 2. Collect a sputum for C and S. 3. Obtain blood cultures for pneumonia. 4. Diabetic control as well as possible during this hospitalization. 5. Perform a gastric emptying study to see if she has delayed emptying times which may explain why she is losing weight. 6. Additional recommendations pending hospital course. cc: MD Shai Castillo MD
[2019-01-29] MEDS: SOLU-MEDROL IV SCH ×2 (05:00→14:17)
[2019-01-29] MEDS: HUMALOG SUBQ SCH ×4 (07:24→21:47)
[2019-01-29] MEDS: DUONEB (A & A) INH SCH ×5 (08:23→23:35)
--- NOTE | 2019-01-29 09:37 | PROGRESS NOTE ---
DATE: 01/29/2019 Ms. Rivera has lingular pneumonia on the left side. Vital signs are stable. She has been for gastric emptying studies as there was some evidence of possible gastroparesis. She has uncontrolled diabetes. We will continue the current management on her. -0 cc: Shai Hendricks MD
[2019-01-29] MEDS: PROTONIX PO SCH (09:39)
[2019-01-29] MEDS: BIDEX PO SCH ×2 (09:39→21:44)
[2019-01-29] MEDS: ATIVAN PO SCH ×2 (09:39→21:44)
[2019-01-29] MEDS: LOPRESSOR PO SCH ×2 (09:39→21:44)
[2019-01-29] MEDS: LEXAPRO PO SCH (09:39)
[2019-01-29] MEDS: PRILOSEC PO SCH (09:40)
[2019-01-29] MEDS: NICODERM PATCH TD SCH (09:44)
[2019-01-29] MEDS: GLUCOPHAGE XR PO SCH ×3 (09:44→21:44)
--- NOTE | 2019-01-29 10:32 | Diag Imaging Result Doc PS360 ---
EXAM: GASTRIC EMPTYING - 01/29/2019 HISTORY: weight loss and satiety TECHNIQUE: Gastric emptying study. Exam performed using 528 uCi technetium 99m sulfur colloid administered by mouth in egg biscuit (solid food). COMPARISON: None. FINDINGS: The gastric emptying half-time is 87 minutes. This is within the normal range of 40 to 90 minutes for gastric imaging half-time. IMPRESSION: Within normal limits gastric emptying rate, with gastric emptying half-time of 87 minutes. Electronically signed by Benigno Frias 01/29/2019 10:30 AM
[2019-01-29] MEDS: DULERA 100 MCG/5 MCG INHALER INH SCH ×2 (11:16→19:40)
[2019-01-29] MEDS: ROCEPHIN 1 GM in NS 50 ML IV SCH (17:09)
[2019-01-29] MEDS: NORCO-5 PO PRN ×2 (17:11→21:44)
[2019-01-29] MEDS: LEVAQUIN 750 MG/D5W 750 MG/150 ML IVPB IV SCH (18:42)
--- NOTE | 2019-01-29 21:35 | PULMONOLOGY PROGRESS NOTE ---
DATE: 01/29/2019 SUBJECTIVE: The patient is awake, alert, and conversant. She reports she is feeling better. OBJECTIVE: Vital Signs: The patient has been afebrile for the last 24 hours. Blood pressure 144/58, heart rate 79, respiratory rate 18, oxygen saturation 94%. HEENT: Pupils are equal and reactive. Oropharynx is clear. Neck: Supple. Chest: Reveals prolonged expiratory phase. Rhonchi have decreased. Cardiac exam: S1-S2. Abdomen: Soft without hepatosplenomegaly. Extremities: Are without edema. LABORATORIES: Gastrics emptying study is at the upper limits of normal at 87 minutes. Microbiology sputum cultures are pending. IMPRESSION: A 63-year-old with: 1. Lingular pneumonia. 2. Chronic obstructive pulmonary disease. 3. Solitary pulmonary nodule. 4. Ongoing tobacco use. 5. Abnormal weight loss. RECOMMENDATIONS: 1. Encourage smoking cessation. 2. Await cultures for sensitivity and specificity. 3. Continue current antibiotic regimen. 4. Begin steroid weaning to help improve hyperglycemia. 5. Will need follow-up ground-glass nodular appearance with a CT scan in 3 months. cc: MD Shai Castillo MD
[2019-01-29] MEDS: LIPITOR PO SCH (21:43)
[2019-01-29] MEDS: LANTUS INSULIN SUBQ SCH (21:46)
[2019-01-29] MEDS: HUMULIN R SUBQ SCH (21:57)
[2019-01-30] MEDS: HUMULIN R SUBQ SCH ×4 (05:59→22:29)
[2019-01-30] MEDS: PRILOSEC PO SCH (05:59)
[2019-01-30] MEDS: GLUCOPHAGE XR PO SCH ×3 (05:59→20:07)
[2019-01-30] MEDS: PROTONIX PO SCH (05:59)
[2019-01-30] MEDS: HUMALOG SUBQ SCH ×4 (06:00→20:07)
[2019-01-30] MEDS: SOLU-MEDROL IV SCH ×2 (06:00→18:13)
[2019-01-30] MEDS: DUONEB (A & A) INH SCH ×5 (07:45→23:20)
[2019-01-30 08:22] LABS: HEMOGLOBIN A1C 9.3 % (4.8-6.0)
--- NOTE | 2019-01-30 09:46 | PROGRESS NOTE ---
DATE: 01/30/2019 Ms. Rivera is doing better. Her hemoglobin A1c is 9.3. Blood sugars are still high. We have put her on sliding scale on the Regular Lantus insulin. Overall condition is unchanged. She is going to have a chest x-ray tomorrow for followup on the pneumonia. -2 cc: Shai Hendricks MD
[2019-01-30] MEDS: ATIVAN PO SCH ×2 (10:14→22:29)
[2019-01-30] MEDS: LEXAPRO PO SCH (10:14)
[2019-01-30] MEDS: LOPRESSOR PO SCH ×2 (10:14→20:07)
[2019-01-30] MEDS: BIDEX PO SCH ×2 (10:14→20:06)
[2019-01-30] MEDS: NICODERM PATCH TD SCH (10:15)
[2019-01-30] MEDS: BENADRYL PO PRN ×2 (10:18→20:07)
[2019-01-30] MEDS: DULERA 100 MCG/5 MCG INHALER INH SCH ×2 (11:42→19:25)
[2019-01-30] MEDS: ROCEPHIN 1 GM in NS 50 ML IV SCH (16:35)
[2019-01-30] MEDS: LEVAQUIN 750 MG/D5W 750 MG/150 ML IVPB IV SCH (18:13)
[2019-01-30] MEDS: FLEXERIL PO PRN (20:06)
[2019-01-30] MEDS: LIPITOR PO SCH (20:07)
[2019-01-30] MEDS: LANTUS INSULIN SUBQ SCH (22:14)
--- NOTE | 2019-01-30 23:51 | PULMONOLOGY PROGRESS NOTE ---
DATE: 01/30/2019 SUBJECTIVE: The patient is awake, alert, and conversant. She reports her breathing has improved. She has a slightly wet cough. She has not completely committed to smoking cessation. OBJECTIVE: Vital Signs: The patient has been afebrile for the last 24 hours. Blood pressure 156/69, heart rate 88, respiratory rate 18, oxygen saturation 98%. HEENT: Pupils are equal and reactive. Oropharynx is clear. Neck: Supple. Chest: Reveals occasional rhonchi bilaterally. Cardiac exam: S1, S2. Abdomen: Soft. Extremities: Without significant edema. LABORATORIES: No new microbiology. IMPRESSION: A 63-year-old with: 1. Lingular pneumonia. 2. Ongoing tobacco use/nicotine addiction. 3. Chronic obstructive pulmonary disease. 4. Solitary pulmonary nodule. 5. Abnormal weight loss without obvious cause. May be related to poorly controlled diabetes. RECOMMENDATION: 1. Continue to educate and encourage the patient to stop smoking. Her granddaughter has also encouraged her to stop smoking. 2. Continue current antibiotics pending finalization of sputum cultures. 3. Okay for transition to oral steroids and discharge soon. 4. Recommend followup CT scan of ground-glass nodule in 3 months. cc: MD Shai Castillo MD
[2019-01-31] MEDS: GLUCOPHAGE XR PO SCH (05:59)
[2019-01-31] MEDS: PRILOSEC PO SCH (06:00)
[2019-01-31] MEDS: HUMALOG SUBQ SCH ×2 (06:00→11:45)
[2019-01-31] MEDS: SOLU-MEDROL IV SCH (06:00)
[2019-01-31] MEDS: HUMULIN R SUBQ SCH ×2 (06:01→11:44)
--- NOTE | 2019-01-31 08:19 | Diag Imaging Result Doc PS360 ---
EXAM: CHEST-2 VIEWS INDICATION: pneumonia follow up TECHNIQUE: 3 views COMPARISON: 01/28/2019 FINDINGS: The small bandlike lingular opacity seen on the previous study is even less prominent. This is at the site of a recent airspace consolidation. It may represent residual scarring. No new consolidation is identified. There is no discrete pleural fluid collection or pneumothorax. The cardiomediastinal silhouette and central vasculature are grossly unremarkable. IMPRESSION: Further decrease in prominence of the small lingular opacity seen on the previous study. Electronically signed by Grayson Vazquez 01/31/2019 8:17 AM
[2019-01-31] MEDS: LEXAPRO PO SCH (09:43)
[2019-01-31] MEDS: BIDEX PO SCH (09:43)
[2019-01-31] MEDS: NICODERM PATCH TD SCH (09:43)
[2019-01-31] MEDS: ATIVAN PO SCH (09:43)
[2019-01-31] MEDS: LOPRESSOR PO SCH (09:43)
[2019-01-31] MEDS: NORCO-5 PO PRN (09:44)
[2019-01-31 11:30] VITALS: BP 166/72
--- NOTE | 2019-01-31 14:01 | PROGRESS NOTE ---
DATE: 01/31/2019 Her blood sugar is 142. She will be discharged today as the chest x-ray shows further improvement in the lingular pneumonia. Her Physical Exam shows the lungs sound much clearer today. Blood sugar is under control. I told her to control diabetes, and stop smoking that is the way to gain weight. She has lost a significant amount of weight. We are going to discharge her today. -8 cc: Shai Hendricks MD
--- NOTE | 2019-01-31 15:38 | DISCHARGE SUMMARY ---
ADMISSION DATE: 01/28/2019 DISCHARGE DATE: 01/31/2019 Ms. Rivera was admitted for lingular pneumonia on the left side with a history of weight loss. She had a history of breast cancer on the right side. She has been a heavy smoker and has diabetes and does not comply with diet and medications at times. Her CT scan of the chest revealed lingular atelectasis and a pneumonia with possible generalized bronchiolitis. She was treated with regular insulin. was given Levaquin as well as Rocephin. She had a Pulmonary consult Dr. De Paz, who continued the current antibiotic therapy. Repeat chest x-ray showed improvement in the infiltrate. She is feeling better. She wants to be discharged home today. We will send her home with Ceftin 250 mg b.i.d. and will be seen in the office in about 7 days. FINAL DIAGNOSIS: 1. Lingular pneumonia. 2. Weight loss. 3. Uncontrolled diabetes. cc: Shai Hendricks MD MTDD
== END 2019-01-31 14:35 | disposition home or self-care (01) | DRG 194 ==
LOC: DIRADM 14:46 → 3N 16:15
PROVIDERS: ADMIT Internal Medicine; ATTEND Internal Medicine
CPT/HCPCS: 71020; 71046; 71250; 78264; 80053; 82805; 82948; 83036; 85025; 87040; 87070; 87205; 93005; 93010; 94640; 94761; A9270; A9541; J0696; J1815; J1956; J2920; J2930; XXXXX

== ENCOUNTER 2019-07-07 11:44 | Inpatient (IN) ==
--- NOTE | 2019-07-07 14:15 | EKG Report ---
Test Performed on : 07/07/2019 2:01:36 PM Test Reason : shortness of breath Blood Pressure : / mmHG Vent. Rate : 089 BPM Atrial Rate : 089 BPM P-R Int : 162 ms QRS Dur : 100 ms QT Int : 400 ms P-R-T Axes : 045 005 090 degrees QTc Int : 486 ms Normal sinus rhythm. Minimal voltage criteria for LVH, may be normal variant Anterior infarct , age undetermined Abnormal ECG When compared with ECG of 28-JAN-2019 16:37, ST more elevated in Anterior leads Confirmed by Mino Rodriguez MD ([id number]) on 07/08/2019 7:18:32 AM
[2019-07-07 14:32] LABS: BASO# 0.04 X1000 (0.0-0.2); BASO% 0.3 % (0.0-0.8); EOS% 0.7 % (0.0-10.0); HEMATOCRIT 49.3 % (37.0-47.0); HEMOGLOBIN 16.3 g/dL (12.0-16.0); IMM GRAN# 0.04 X1000 (0.0-0.04); IMM GRAN% 0.3 % (0.0-0.5); LYMPH# 4.77 X1000 (1.2-3.4); MCH 30.6 PG (27-31); MCHC 33.1 g/dL (33-37); MCV 92.7 FL (81-99); MONO# 1.03 X1000 (0.11-0.59); MONO% 7.1 % (1.7-9.3); MPV 12.3 FL (7.4-10.4); NEUT# 8.46 X1000 (1.4-6.5); NEUT% 58.6 % (42.2-75.2); PLT 239 X1000 (130-400); RBC 5.32 XMIL (4.2-5.4); RDW 13.9 % (11.5-14.5); WBC 14.44 X1000 (4.8-10.8)
[2019-07-07 15:10] LABS: ALB/GLOB RATIO 1.2; CALCIUM 9.7 mg/dL (8.8-10.2); CREATININE 1.1 mg/dL (0.5-0.9); POTASSIUM 3.6 mmol/L (3.5-5.1); TOTAL BILIRUBIN 0.59 mg/dL (0.20-1.00); TOTAL PROTEIN 7.4 g/dL (6.3-8.3)
--- NOTE | 2019-07-07 15:44 | Diag Imaging Result Doc PS360 ---
EXAM: CT HEAD W/O CONTRAST 07/07/2019 HISTORY: head injury/ mental status change TECHNIQUE: This exam was performed using automated exposure control, adjustment of mA or kV according to patient size, and/or use of iterative reconstruction technique. COMMENT: There is calcification in the vertebral and internal carotid arteries bilaterally. There is no evidence of mass effect, bleed, or abnormal extra-axial fluid collection. There is minimal periventricular white matter lucency bilaterally particularly in the frontal lobes. This was also present on 04/16/2018. The calvarium is intact. The paranasal sinuses are clear as seen with the exception of the inferior left frontal sinus where there is a mucous retention cyst. This was not previously present. IMPRESSION: No evidence of acute intracranial disease. Mucous retention cyst in the left frontal sinus. Electronically signed by Arian Kim 07/07/2019 3:42 PM
--- NOTE | 2019-07-07 15:59 | Diag Imaging Result Doc PS360 ---
EXAM: KNEE 1-2 VIEWS-RIGHT 07/07/2019 HISTORY: frequent falls TECHNIQUE: Right knee two views COMMENT: There is extensive calcification in the superficial femoral artery and popliteal artery. There is no evidence of fracture or dislocation periosteal reaction or erosion. IMPRESSION: No acute bony abnormality. Atherosclerosis. Electronically signed by Arian Kim 07/07/2019 3:57 PM
--- NOTE | 2019-07-07 15:59 | Diag Imaging Result Doc PS360 ---
EXAM: KNEE 1-2 VIEWS-LEFT 07/07/2019 HISTORY: frequent falls TECHNIQUE: Left knee two views COMMENT: There is patellofemoral arthropathy. There is no evidence of fracture or dislocation. IMPRESSION: Osteoarthritis. Electronically signed by Arian Kim 07/07/2019 3:57 PM
--- NOTE | 2019-07-07 15:59 | Diag Imaging Result Doc PS360 ---
EXAM: CHEST-2 VIEWS HISTORY: shortness of breath TECHNIQUE: PA and Lateral chest x-ray COMPARISON: 03/10/2019. FINDINGS: The cardiomediastinal silhouette is within normal limits. The pulmonary vasculature is not congested. No infiltrate, effusion, or pneumothorax is appreciated. There are surgical clips anteriorly on the right. IMPRESSION: No acute cardiopulmonary abnormality is identified. Electronically signed by Fior Wagner 07/07/2019 3:57 PM
[2019-07-07] MEDS: NORCO-5 PO PRN (16:22)
[2019-07-07] MEDS: NICODERM PATCH TD SCH (17:30)
[2019-07-07] MEDS ORDERED: LABETALOL IV PRN (19:31)
[2019-07-07] MEDS ORDERED: TESSALON PO PRN (19:33)
[2019-07-07] MEDS ORDERED: LEVAQUIN 500 MG/D5W 500 MG/100 ML IVPB IV ONE (19:35)
[2019-07-07] MEDS: ATIVAN PO SCH (22:02)
[2019-07-07] MEDS: GLUCOPHAGE XR PO SCH (22:02)
[2019-07-07] MEDS: FLEXERIL PO SCH (22:03)
[2019-07-07] MEDS: LANTUS INSULIN SUBQ SCH (22:03)
[2019-07-07] MEDS: VOLTAREN PO SCH (22:03)
[2019-07-07] MEDS: LOPRESSOR PO SCH (22:03)
[2019-07-07] MEDS: DUONEB (A & A) INH PRN (23:37)
[2019-07-08] MEDS: GLUCOPHAGE XR PO SCH ×3 (06:36→21:16)
[2019-07-08] MEDS: PRILOSEC PO SCH (06:37)
[2019-07-08] MEDS ORDERED: PRILOSEC PO SCH (07:00)
[2019-07-08] MEDS: DULERA 100 MCG/5 MCG INHALER INH SCH ×2 (07:54→20:16)
[2019-07-08] MEDS: LIPITOR PO SCH (08:53)
[2019-07-08] MEDS: LEXAPRO PO SCH (08:54)
[2019-07-08] MEDS: LOPRESSOR PO SCH ×2 (08:54→21:16)
[2019-07-08] MEDS: NICODERM PATCH TD SCH (08:54)
[2019-07-08] MEDS: VOLTAREN PO SCH ×2 (08:54→21:16)
[2019-07-08] MEDS: NORCO-5 PO PRN (09:04)
--- NOTE | 2019-07-08 09:53 | PROGRESS NOTE ---
DATE: 07/08/2019 SUBJECTIVE: Ms Rivera was admitted yesterday with a history of frequent falls and staggering gait. OBJECTIVE: CT scan is negative. X-ray of the knees where she had some bruising is negative. PLAN: We will continue to watch her closely and watch her neurological status. She has some sinusitis as noted on the CT scan of the head and has leukocytosis. We will give her IV Levaquin. -1 cc: Shai Hendricks MD
--- NOTE | 2019-07-08 09:58 | HISTORY AND PHYSICAL ---
ADDENDUM: MEDICATION LIST: 1. Flexeril 10 mg at bedtime. 2. Lantus insulin 35 units daily. 3. Lorazepam at bedtime. 4. DuoNeb. 5. Atorvastatin 40 mg daily. 6. Benzonatate 100 mg t.i.d. 7. Symbicort b.i.d. 8. Metoprolol 100 mg b.i.d. 9. Metformin 500 mg t.i.d. 10. Omeprazole daily. cc: Shai Hendricks MD
--- NOTE | 2019-07-08 10:01 | HISTORY AND PHYSICAL ---
HISTORY: Ms. Rivera who is a 63-year-old white female with a known case of diabetes, early COPD, degenerative arthritis, and hypertension was admitted with frequent falls and head injury. She injured her head, and was almost unresponsive for a few hours. This happened about 2 days prior, and she did not come to the office. She was very staggery and has been falling. She is somewhat noncompliant about her diet, however, has not noticed any hypoglycemia. PAST SURGICAL HISTORY: Reveals history of hysterectomy and bladder repair. She also had a right breast lumpectomy performed for breast cancer. Her blood sugar has also not been under well control. SOCIAL HISTORY: She is a heavy smoker, and smokes about a pack of cigarettes per day. Does not drink. ALLERGIES: She is allergic to enalapril, lisinopril, and morphine. REVIEW OF SYSTEMS: She feels weak and staggering, and has some intermittent headaches. Otherwise, she has no cardiopulmonary symptoms or GI symptoms. Symptoms. PHYSICAL EXAMINATION: GENERAL: The patient is alert at times and is disoriented. She also has some hallucinations. VITAL SIGNS: Temperature normal, pulse 80 per minute, respiratory rate 20 per minute, blood pressure was 150/90. HEENT: Head normocephalic. Pupils PERRLA. Fundus examination not done. NECK: Supple. JVP normal. ENT examination unremarkable. There is no evidence of lymphadenopathy, thyroid enlargement, pedal edema, calf tenderness, anemia, cyanosis or clubbing. Pedal pulses well felt. BREASTS: Normal. CHEST: Normal on inspection. LUNGS: Clear on auscultation. PMI in the normal position. HEART: Sounds normal. No murmur, gallop or rub noted. ABDOMEN: Nondistended. Hernial orifices normal. No guarding, rigidity, free fluid, masses, or organomegaly. Revealed the scars from previous surgery. 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 Patient gets confused, has frequent falls, and has been having hallucinations which visual and auditory. Cranial nerves grossly normal. Motor and sensory system examination unremarkable. Deep tendon reflexes normal. Plantars downgoing. Skull and spine examination normal for age. No cerebellar signs or signs of meningeal irritation on locomotor system. SKIN: Unremarkable except for multiple bruises especially on both knees. Knee movements are also painful. CLINICAL IMPRESSION: 1. History of frequent falls. 2. History of head injury with bruises around the skull and had hallucinations, change in mental status, and uncontrolled diabetes. cc: Shai Hendricks MD MTDD
[2019-07-08] MEDS: LEVAQUIN 500 MG/D5W 500 MG/100 ML IVPB IV SCH (21:16)
[2019-07-08] MEDS: ATIVAN PO SCH (21:16)
[2019-07-08] MEDS: FLEXERIL PO SCH (21:16)
[2019-07-08] MEDS: LANTUS INSULIN SUBQ SCH (21:17)
[2019-07-09] MEDS: PRILOSEC PO SCH (06:13)
[2019-07-09] MEDS: GLUCOPHAGE XR PO SCH ×3 (06:13→21:42)
[2019-07-09] MEDS: DULERA 100 MCG/5 MCG INHALER INH SCH ×2 (08:11→21:25)
[2019-07-09] MEDS: NICODERM PATCH TD SCH (09:36)
[2019-07-09] MEDS: LEXAPRO PO SCH (09:37)
[2019-07-09] MEDS: LIPITOR PO SCH (09:37)
[2019-07-09] MEDS: VOLTAREN PO SCH ×2 (09:37→21:42)
[2019-07-09] MEDS: LOPRESSOR PO SCH ×2 (09:37→21:42)
--- NOTE | 2019-07-09 09:41 | PROGRESS NOTE ---
DATE: 07/09/2019 Her blood sugars have started coming down. Of course, this morning, it was 297. She is on insulin as well as metformin. Her blood cultures are negative so far. She had been falling at home. She drinks only 1 beer per day. We have to investigate the alcohol history further. However, in the meantime, I am going to do the orthostatic pressure studies and ask physical therapy to help her walk. Her vital signs are stable. She has severe sinusitis, severe leukocytosis. We are going to check her CBC and electrolytes again. -8 cc: Shai Hendricks MD
[2019-07-09] MEDS: ATIVAN PO PRN (11:16)
[2019-07-09] MEDS: NORCO-5 PO PRN ×2 (11:16→21:54)
[2019-07-09] MEDS: LEVAQUIN 500 MG/D5W 500 MG/100 ML IVPB IV SCH (21:41)
[2019-07-09] MEDS: LANTUS INSULIN SUBQ SCH (21:42)
[2019-07-09] MEDS: FLEXERIL PO SCH (21:42)
[2019-07-09] MEDS: ATIVAN PO SCH (21:42)
[2019-07-10 07:51] LABS: BASO# 0.04 X1000 (0.0-0.2); BASO% 0.3 % (0.0-0.8); EOS% 2.5 % (0.0-10.0); HEMATOCRIT 44.1 % (37.0-47.0); HEMOGLOBIN 14.3 g/dL (12.0-16.0); LYMPH# 5.23 X1000 (1.2-3.4); LYMPH% 43.5 % (20.5-51.1); MCH 31.7 PG (27-31); MCHC 32.4 g/dL (33-37); MCV 97.8 FL (81-99); MONO# 1.21 X1000 (0.11-0.59); MONO% 10.1 % (1.7-9.3); MPV 12.2 FL (7.4-10.4); NEUT# 5.25 X1000 (1.4-6.5); NEUT% 43.6 % (42.2-75.2); PLT 234 X1000 (130-400); RBC 4.51 XMIL (4.2-5.4); RDW 14.4 % (11.5-14.5); WBC 12.03 X1000 (4.8-10.8)
[2019-07-10 08:06] LABS: CALCIUM 9.3 mg/dL (8.8-10.2); CREATININE 1.7 mg/dL (0.5-0.9); POTASSIUM 5.3 mmol/L (3.5-5.1)
[2019-07-10] MEDS: NICODERM PATCH TD SCH (09:12)
[2019-07-10] MEDS: VOLTAREN PO SCH ×2 (09:12→20:32)
[2019-07-10] MEDS: LIPITOR PO SCH (09:12)
[2019-07-10] MEDS: LOPRESSOR PO SCH ×2 (09:12→20:32)
[2019-07-10] MEDS: LEXAPRO PO SCH (09:12)
[2019-07-10] MEDS: GLUCOPHAGE XR PO SCH ×3 (09:15→20:32)
[2019-07-10] MEDS: PRILOSEC PO SCH (09:15)
[2019-07-10] MEDS ORDERED: POTASSIUM CHLORIDE 10 MEQ in 1/2 NS 1,000 ML IV SCH (09:15)
[2019-07-10] MEDS: DULERA 100 MCG/5 MCG INHALER INH SCH ×2 (09:58→19:13)
--- NOTE | 2019-07-10 11:38 | PROGRESS NOTE ---
DATE: 07/10/2019 Ms Rivera is improving. Her BUN and creatinine have gone up. White count has come down. She has some dehydration. We are going to start IV fluids on her today. Overall, condition is unchanged. -0 cc: Shai Hendricks MD
[2019-07-10] MEDS: 1/2 NS 1,000 ML IV SCH (12:10)
[2019-07-10] MEDS: DUONEB (A & A) INH PRN (15:55)
[2019-07-10] MEDS: ATIVAN PO SCH (20:32)
[2019-07-10] MEDS: FLEXERIL PO SCH (20:32)
[2019-07-10] MEDS: LANTUS INSULIN SUBQ SCH (20:33)
[2019-07-10] MEDS: NORCO-5 PO PRN (20:36)
[2019-07-10] MEDS: LEVAQUIN 500 MG/D5W 500 MG/100 ML IVPB IV SCH (22:00)
[2019-07-11] MEDS: 1/2 NS 1,000 ML IV SCH ×3 (04:26→19:39)
[2019-07-11] MEDS: PRILOSEC PO SCH (06:02)
[2019-07-11] MEDS: GLUCOPHAGE XR PO SCH ×3 (06:02→20:54)
[2019-07-11 08:00] LABS: CALCIUM 8.7 mg/dL (8.8-10.2); CREATININE 1.6 mg/dL (0.5-0.9); POTASSIUM 5.4 mmol/L (3.5-5.1)
[2019-07-11] MEDS: NICODERM PATCH TD SCH (09:52)
[2019-07-11] MEDS: LEXAPRO PO SCH (09:53)
[2019-07-11] MEDS: LIPITOR PO SCH (09:53)
[2019-07-11] MEDS: VOLTAREN PO SCH ×2 (09:53→20:54)
[2019-07-11] MEDS: LOPRESSOR PO SCH ×2 (09:53→11:29)
[2019-07-11] MEDS: NORCO-5 PO PRN ×2 (10:02→21:55)
[2019-07-11] MEDS: DUONEB (A & A) INH PRN ×2 (10:36→16:11)
[2019-07-11] MEDS: DULERA 100 MCG/5 MCG INHALER INH SCH ×2 (10:39→19:33)
--- NOTE | 2019-07-11 12:22 | PROGRESS NOTE ---
DATE: 07/11/2019 SUBJECTIVE: Ms Rivera is still not feeling well. She has some headaches. She has significant orthostatic hypotension; when she stands up, her blood pressure drops. We are going to hold on her metoprolol and continue the lisinopril, watch her again for the orthostatic change. This could be the reason why she has been falling. OBJECTIVE: Her electrolytes revealed potassium 5.4. CBC shows white count has come down to 12.03, 5.4 is the potassium which has gone up. Actually the creatinine and BUN have gone up too. PLAN: She is getting IV fluids which we are going to step up on it. cc: Shai Hendricks MD
[2019-07-11] MEDS ORDERED: NS 0 ML ONE (12:47)
[2019-07-11] MEDS: LANTUS INSULIN SUBQ SCH (20:53)
[2019-07-11] MEDS: FLEXERIL PO SCH (20:54)
[2019-07-11] MEDS: ATIVAN PO SCH (20:54)
[2019-07-11] MEDS: LEVAQUIN 500 MG/D5W 500 MG/100 ML IVPB IV SCH (21:55)
[2019-07-12] MEDS: PRILOSEC PO SCH (06:20)
[2019-07-12] MEDS: GLUCOPHAGE XR PO SCH ×3 (06:21→20:51)
[2019-07-12 07:56] LABS: CALCIUM 7.6 mg/dL (8.8-10.2); CREATININE 1.5 mg/dL (0.5-0.9); POTASSIUM 4.8 mmol/L (3.5-5.1)
[2019-07-12] MEDS: NICODERM PATCH TD SCH (08:30)
[2019-07-12] MEDS: LIPITOR PO SCH (08:30)
[2019-07-12] MEDS: VOLTAREN PO SCH ×2 (08:30→20:51)
[2019-07-12] MEDS: LEXAPRO PO SCH (08:30)
[2019-07-12] MEDS: 1/2 NS 1,000 ML IV SCH ×2 (08:39→20:51)
--- NOTE | 2019-07-12 10:02 | PROGRESS NOTE ---
DATE: 07/12/2019 SUBJECTIVE: The patient says she is feeling a little bit better. She has been having headaches. She has been orthostatic. OBJECTIVE: Blood pressure was 133/61 supine. Standing went down to 106/55, so the patient still has orthostatic. Dr. Hendricks stopped her beta jenn yesterday. She is on an JACKY inhibitor today. We will see how her blood pressure does as time goes and the beta jenn gets out of her system. HEENT: She is normocephalic. Intact PERRLA. Throat clear. Lungs: Clear to auscultation and percussion without rhonchi, rales, or wheezes. Heart: Regular rate and rhythm without murmurs, gallops, friction rubs. Abdomen: Soft. Active bowel sounds. No organomegaly or tenderness. Neurologic: Exam intact grossly. ASSESSMENT: 1. Orthostasis. 2. Hypertension. cc: MD Shai Toro Jr, MD
[2019-07-12] MEDS: DUONEB (A & A) INH PRN ×2 (10:19→15:27)
[2019-07-12] MEDS: DULERA 100 MCG/5 MCG INHALER INH SCH ×2 (10:20→20:08)
[2019-07-12] MEDS: NORCO-5 PO PRN (20:50)
[2019-07-12] MEDS: ATIVAN PO SCH (20:51)
[2019-07-12] MEDS: FLEXERIL PO SCH (20:51)
[2019-07-12] MEDS: LANTUS INSULIN SUBQ SCH (20:52)
[2019-07-12] MEDS: LEVAQUIN 500 MG/D5W 500 MG/100 ML IVPB IV SCH (20:59)
[2019-07-13] MEDS: PRILOSEC PO SCH (06:04)
[2019-07-13] MEDS: GLUCOPHAGE XR PO SCH ×3 (06:04→21:05)
[2019-07-13] MEDS: LEXAPRO PO SCH (08:11)
[2019-07-13] MEDS: VOLTAREN PO SCH ×2 (08:11→21:05)
[2019-07-13] MEDS: LIPITOR PO SCH (08:11)
[2019-07-13] MEDS: NICODERM PATCH TD SCH (08:11)
[2019-07-13] MEDS: NORCO-5 PO PRN ×2 (08:15→12:03)
[2019-07-13] MEDS: 1/2 NS 1,000 ML IV SCH ×2 (09:42→21:05)
[2019-07-13] MEDS: DULERA 100 MCG/5 MCG INHALER INH SCH ×2 (09:58→19:15)
[2019-07-13] MEDS: DUONEB (A & A) INH PRN ×2 (09:59→15:36)
--- NOTE | 2019-07-13 11:55 | PROGRESS NOTE ---
DATE: 07/13/2019 SUBJECTIVE: The patient says she still has headaches and dizziness when she stands up. Her blood pressure lying down this morning was 132/52 with a pulse of 88. Sitting was 126/52 with a pulse of 97. Standing was a blood pressure of 93/58 with a pulse of 100. The patient still is orthostatic. Respirations 18, pulse 74, temperature 97.9 degrees Fahrenheit. OBJECTIVE: Vital Signs: As above. HEENT: She is normocephalic. EOMs intact. PERRLA. Throat clear. Lungs: Clear to auscultation and percussion without rhonchi, rales, or wheezes. Heart: Regular rate and rhythm without murmurs, gallops, or friction rubs. Abdomen: Soft. Active bowel sounds. No organomegaly or tenderness. Neurological: Examination intact grossly. ASSESSMENT: Orthostatic hypotension. PLAN: Beta jenn has been withheld. She is on no blood pressure medications at this time. She does have labetalol ordered p.r.n. severe hypertension but she is off of her blood pressure medications now. The patient may need SUOMYA stockings. Could consider Florinef. Dr. Hendricks can make these decisions on return as he knows the patient much better than I. cc: MD Shai Toro Jr, MD
[2019-07-13] MEDS: ATIVAN PO PRN (12:06)
[2019-07-13] MEDS: ATIVAN PO SCH (21:05)
[2019-07-13] MEDS: FLEXERIL PO SCH (21:05)
[2019-07-13] MEDS: LEVAQUIN 500 MG/D5W 500 MG/100 ML IVPB IV SCH (21:05)
[2019-07-13] MEDS: LANTUS INSULIN SUBQ SCH (21:05)
[2019-07-14] MEDS: NORCO-5 PO PRN ×2 (00:07→09:54)
[2019-07-14 04:11] VITALS: BP 141/56
[2019-07-14] MEDS: PRILOSEC PO SCH (06:12)
[2019-07-14] MEDS: ATIVAN PO PRN (06:15)
[2019-07-14] MEDS: GLUCOPHAGE XR PO SCH (06:16)
--- NOTE | 2019-07-14 09:13 | PROGRESS NOTE ---
DATE: 07/14/2019 SUBJECTIVE: Her orthostatic hypotension is almost resolved. We stopped most of her blood pressure medications and had her watch it closely. OBJECTIVE: Lungs: Sound clear. Heart: Heart sounds are normal. LABORATORY DATA: Blood sugar still fluctuates. PLAN: We will discharge her today. She is advised to stop smoking. cc: Shai Hendricks MD
[2019-07-14] MEDS ORDERED: FLU VACCINE IM ONE (09:40)
[2019-07-14] MEDS: LIPITOR PO SCH (09:49)
[2019-07-14] MEDS: NICODERM PATCH TD SCH (09:49)
[2019-07-14] MEDS: LEXAPRO PO SCH (09:50)
[2019-07-14] MEDS: VOLTAREN PO SCH (09:50)
--- NOTE | 2019-07-16 12:54 | DISCHARGE SUMMARY ---
ADMISSION DATE: 07/07/2019 DISCHARGE DATE: 07/14/2019 Ms. Rivera was admitted because of frequent falls at home. She had passed out. She had some hematoma around the skull. LABORATORY DATA: In the hospital, CT scan of the head did not reveal any evidence of acute intracranial disease. Some mucous retention cyst in the frontal sinus was noted. Some evidence of sinusitis was noted. There was calcification in the vertebral and internal carotid artery bilaterally. No evidence of mass effect was noted. Chest x-ray was no acute cardiopulmonary abnormality was noted on the chest x-ray. EKG revealed normal sinus rhythm, minimal voltage criteria for LVH, anterior infarct. Her electrolytes initially revealed leukocytosis. White count was 14.44, which came down to 12.03. Chemistry profile revealed fluctuating blood sugars. Her blood sugar was 419 and then came down to as low as 66. Electrolytes are normal. BUN was 34, creatinine 1.5. COURSE IN THE HOSPITAL: She was initially treated with IV fluids. IV antibiotics were given with sinus severe sinusitis, headaches. She had frequent falls. Telemetry did not show any evidence of significant arrhythmias. Blood sugar was fluctuating and we had to hold the insulin after initial treatment. She continued to do well. She had severe orthostatic hypotension and blood pressure medications were held. Final diagnosis is history of frequent falls, probably secondary from orthostatic hypotension. Acute sinusitis, renal failure. The patient has uncontrolled diabetes, which is unstable. Her oral intake is very unreliable. She will be discharged today to be seen in the office in about 7 days. -9 cc: Shai Hendricks MD
== END 2019-07-14 10:37 | disposition home or self-care (01) | DRG 312 ==
LOC: DIRADM 11:44 → 3N 13:13
PROVIDERS: ADMIT Internal Medicine; ATTEND Internal Medicine

== ENCOUNTER 2019-08-18 11:04 | Inpatient (IN) ==
[2019-08-18] MEDS ORDERED: D50W SYRINGE IV PRN (12:45)
--- NOTE | 2019-08-18 12:56 | Diag Imaging Result Doc PS360 ---
CT HEAD W/O CONTRAST - 08/18/2019 INDICATION: New Admit COMPARISON: 07/07/2019 FINDINGS: The ventricles and sulci are normal in size and contour. No intracranial mass or hemorrhage. Stable old lacunae in the left thalamus. Stable mild periventricular white matter chronic microvascular ischemia. The skull is intact. The sinuses, mastoids, and middle ears are clear. There is severe vascular disease with calcification of the carotid siphons bilaterally. IMPRESSION: No acute disease or change from prior. This exam was performed using automated exposure control, adjustment of mA or kV according to patient size, and/or use of iterative reconstruction technique Electronically signed by García Lopez 08/18/2019 12:54 PM
--- NOTE | 2019-08-18 13:07 | Diag Imaging Result Doc PS360 ---
CHEST-2 VIEWS - 08/18/2019 INDICATION: new admit COMPARISON: 07/07/2019 FINDINGS: There is an infiltrate in the lingula. The right lung is clear. Heart size is normal. No pneumothorax or pleural effusion. IMPRESSION: Small lingular infiltrate which may represent pneumonia. Correlate clinically. Electronically signed by García Lopez 08/18/2019 1:04 PM
[2019-08-18] MEDS: 1/2 NS 1,000 ML IV SCH (13:28)
[2019-08-18] MEDS: NICODERM PATCH TD SCH (13:29)
[2019-08-18 14:19] LABS: BASO# 0.04 X1000 (0.0-0.2); BASO% 0.3 % (0.0-0.8); EOS# 0.25 X1000 (0.0-0.7); EOS% 1.6 % (0.0-10.0); HEMATOCRIT 44.6 % (37.0-47.0); HEMOGLOBIN 15.1 g/dL (12.0-16.0); IMM GRAN# 0.03 X1000 (0.0-0.04); IMM GRAN% 0.2 % (0.0-0.5); LYMPH# 5.09 X1000 (1.2-3.4); LYMPH% 32.5 % (20.5-51.1); MCH 31.1 PG (27-31); MCHC 33.9 g/dL (33-37); MONO% 7.7 % (1.7-9.3); MPV 11.1 FL (7.4-10.4); NEUT# 9.07 X1000 (1.4-6.5); NEUT% 57.7 % (42.2-75.2); PLT 308 X1000 (130-400); RBC 4.85 XMIL (4.2-5.4); RDW 12.8 % (11.5-14.5); WBC 15.68 X1000 (4.8-10.8)
[2019-08-18 14:38] LABS: ALB/GLOB RATIO 1.2; ALBUMIN 3.7 g/dL (3.5-5.0); CREATININE 1.3 mg/dL (0.5-0.9); POTASSIUM 3.9 mmol/L (3.5-5.1); TOTAL BILIRUBIN 0.31 mg/dL (0.20-1.00); TOTAL PROTEIN 6.7 g/dL (6.3-8.3)
[2019-08-18] MEDS: NORCO-5 PO PRN (16:23)
[2019-08-18] MEDS: HUMALOG SUBQ SCH ×2 (16:28→21:58)
[2019-08-19] MEDS: NORCO-5 PO PRN ×3 (02:18→23:27)
[2019-08-19] MEDS: 1/2 NS 1,000 ML IV SCH ×2 (02:19→18:37)
[2019-08-19] MEDS: ATIVAN PO PRN ×2 (02:19→08:43)
[2019-08-19] MEDS: LOVENOX SUBQ SCH (06:23)
[2019-08-19] MEDS: HUMALOG SUBQ SCH ×4 (06:24→21:11)
[2019-08-19] MEDS: LANTUS INSULIN SUBQ SCH (08:40)
[2019-08-19] MEDS: NICODERM PATCH TD SCH (08:40)
[2019-08-19] MEDS: PROTONIX PO SCH (08:40)
[2019-08-19] MEDS: LEXAPRO PO SCH (08:40)
[2019-08-19] MEDS ORDERED: LABETALOL IV PRN (09:24)
--- NOTE | 2019-08-19 10:14 | PROGRESS NOTE ---
DATE: 08/19/2019 Ms. Rivera is feeling slightly better. She is still dizzy, has intermittent headache. She does have some horizontal nystagmus. She has incoordination with the right leg this morning. She has left lingular lobe pneumonia with leukocytosis, now will put her on IV antibiotics. cc: Shai Hendricks MD MTDD
[2019-08-19] MEDS: LEVAQUIN 750 MG/D5W 750 MG/150 ML IVPB IV SCH (11:43)
--- NOTE | 2019-08-19 14:41 | HISTORY AND PHYSICAL ---
HISTORY OF PRESENT ILLNESS: Ms Rivera, who is a 63-year-old, white female, has a known case of insulin-dependent diabetes, whose blood pressure and diabetes are somewhat staying out of control, partly on account of noncompliance. She is admitted with severe headache, weakness, weight loss. She has shortness of breath. She has lost at least 30 pounds in the last 4 months. In the last 1 week, she lost about 5 pounds. She came actually with severe headache with blurry reason and dizziness. She has a history of frequent falls at home. She was admitted here about a month and a half ago and was found to have orthostatic hypotension. Some of the blood pressure medicines were discontinued. However, her blood pressure stays uncontrolled. PAST SURGICAL HISTORY: Reveals history of tubal ligation, total abdominal hysterectomy. She had a lumpectomy from the right breast. This was followed by radiation which was handled by Dr. Donovan Milian in [place]. SOCIAL HISTORY: She is a constant smoker, smokes about a pack of cigarettes per day. She drinks some; however, not on a very regular basis. She has 1 or 2 beers per day many times. She does not get drunk. REVIEW OF SYSTEMS: General: She has a mild cough, shortness of breath, and generalized weakness. She has falls and weakness, and incoordination in the right lower extremity mostly. PHYSICAL EXAMINATION: VITAL SIGNS: Reveal temperature is normal, pulse 64 per minute, respiratory rate 18 per minute, blood pressure 174/84. HEENT: Head: Normocephalic. Pupils: PERRLA. Fundus examination not done. Neck supple. JVP normal. ENT examination unremarkable. There is no evidence of lymphadenopathy, thyroid enlargement, pedal edema, calf tenderness, anemia, cyanosis, or clubbing. Pedal pulses well felt. BREAST EXAMINATION: She has a scar on the right breast. Breast examination is unremarkable. CHEST: Normal to inspection. Lungs reveal occasional basal rales bilaterally. She has COPD. CARDIAC: PMI in the normal position. Heart sounds normal. No murmur, gallop, or rub noted. ABDOMEN: Nondistended. Hernial orifices normal. No guarding, rigidity, free fluid, masses, or organomegaly. Bowel sounds normal. RECTAL: Examination deferred. 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 Cranial nerves normal. Motor and sensory system examination reveals some hypotonia on the right side with incoordination in the right lower extremity. She does have some nystagmus which is horizontal nystagmus. Deep tendon reflexes are sluggish. Plantar is equivocal. Skull and spine examination reveals painful movements of the lumbosacral spine. SLR somewhat positive bilaterally. No cerebellar signs except she does have nystagmus and she has some incoordination in the right lower extremity. There are no signs of meningeal irritation. LOCOMOTOR EXAM AND SKIN EXAMINATION: Unremarkable. CLINICAL IMPRESSION: 1. History of severe weight loss. 2. Subacute onset of dizziness, headache, and blurred vision. 3. She has history of frequent falls. MEDICATIONS: Include lorazepam, Lantus insulin, Humalog, escitalopram or Lexapro, and Prilosec at home. PLAN: We will try to get the initial lab work and then get a neurology consultation. cc: Shai Hendricks MD
--- NOTE | 2019-08-19 16:32 | Diag Imaging Result Doc PS360 ---
EXAM: MRI BRAIN W/WO CONTRAST 08/19/2019 HISTORY: persistent headaches TECHNIQUE: T1 sagittal and axial with post gadolinium-enhanced axial with coronal reformation, T2, FLAIR, DWI axial and coronal gradient echo. COMMENT: There are punctate and patchy areas of increased T2-weighted signal intensity in both hemispheres particularly in the subcortical white matter of the posterior parietal lobes and near the atria of the lateral ventricles. There are also several lacunae present in the left thalamus. There are small punctate areas of increased T2-weighted signal intensity in the juan alberto. No evidence of bleed or abnormal extra-axial fluid collection is present. There is no evidence of restricted diffusion. No evidence of abnormal gadolinium enhancement is present. IMPRESSION: Chronic ischemic microvascular changes. No evidence of acute disease. Electronically signed by Arian Kim 08/19/2019 4:29 PM
[2019-08-19] MEDS: ATIVAN PO SCH (22:44)
--- NOTE | 2019-08-19 23:38 | CONSULTATION ---
DATE OF CONSULTATION: 08/19/2019 REASON FOR CONSULT: Dizziness, headaches. HISTORY OF PRESENT ILLNESS: This is a 63-year-old, right-handed, female with a history of poorly-controlled diabetes and hypertension. She also has a history of a lumpectomy of the right breast and subsequent radiation. She is admitted at this time due to more persistent headache, dizziness, and weight loss. History is from the patient and chart review. She states she fell about a month ago after tripping on a cord. She hit her knee and hit her head. She had around that time, begun to have persistent but intermittent headache. The location is across the forehead and in the cheeks bilaterally. She thinks that they are similar to her previous headaches that she is had long-standing which is, to her knowledge, related to sinus infections. She has had some visual changes intermittently, some associated with headache and others that are not. She reports mostly a decreased visual acuity which comes and goes, but is not related to positional change or other obvious factors. Occasionally the vision looks blurry. She was here a month ago and, at that time, diagnosed with orthostatic hypotension. Blood pressure medications were discontinued. When she came in this time, her blood pressure was elevated at 205/82 and her blood glucose was above 300. She has had orthostasis noted on orthostatic vital sign measurements this hospitalization. She is being treated for pneumonia and is on Levaquin for that. She personally describes the dizziness as occurring with positional change, for instance when she is lying down to sitting up, she has to sit up on the side of the bed before standing. Additionally, standing up from the commode, she has to stand there and hold on for a few minutes before she feels stable enough to walk. She feels as though she will pass out. Sometimes she thinks the room is spinning. Turning her head quickly also brings on some of the dizziness. She has not noticed focal neurologic symptoms. No focal weakness or sensory disturbance. She denies actual loss of consciousness. Headache is improved currently. PAST MEDICAL HISTORY: Uncontrolled diabetes, hypertension, tobacco use, hysterectomy, tubal ligation, right breast lumpectomy and radiation that was followed by Dr. Donovan Milian in [place], [place]. SOCIAL HISTORY: She is a current smoker. There is some alcohol. No illicit's. She is . She reports anxiety since the of her son 16 years ago as well as more recent deaths in the last 5 years of her , mother and another family member. She reports taking lorazepam for anxiety. FAMILY HISTORY: Reviewed and noncontributory. ALLERGIES: Listed to enalapril, lisinopril, morphine. MEDICATIONS AT HOME: Include lorazepam, she takes 2 tablets at night for sleep, occasionally she takes them during the daytime, Lantus, Humalog, escitalopram, and Prilosec. REVIEW OF SYSTEMS: Balance of 12 conducted is negative, except that detailed in HPI. She has had a cough and some shortness of breath. PHYSICAL EXAMINATION: Vital Signs: Blood pressure 205/82 on admission. Orthostatics performed this morning at 8 a.m., show supine 174/84, pulse 64; sitting 121/68, pulse 76; standing 104/72, pulse 100. Afebrile, pulse 50s to 60s generally. General: Ms Rivera is initially seen walking out of the bathroom holding onto her IV pole. She walks slowly and cautiously but without assistance and appears steady. She sits up in bed. She is awake, alert, oriented. Speech fluent, attentive and spontaneous. No language disturbance on brief bedside testing, no dysarthria. Neurologic: Pupils are equal, round, and reactive. Gaze conjugate. Ocular movements full. Visual egan intact to direct confrontational testing. She can hear. Face symmetric with equal activation. Facial sensation reported intact. Tongue is midline. Palate elevates symmetrically. Shoulder shrug is full. Tone appears equal in the limbs. No drift. Power in the limbs is preserved and symmetric with encouragement, with the following exception, the right hip flexor may be 4+/5. Reflexes are trace at the ankles with distraction. She has a very difficult time relaxing. 1+ at the knees bilaterally. Trace at the wrists bilaterally. Plantar response is silent. No clonus. Sensory exam: There is length dependent loss to pinprick and vibratory sense distally in the feet present around the ankle region and above. She did well on joint position sense with the left great toe. On the right, she said just the opposite of the correct answer each time. [id number], rapid alternating movements intact. Gait as per above. DIAGNOSTICS: Head CT, noncontrast, showing no acute findings. There is an old lacune in the left thalamus, mild periventricular white matter, chronic microvascular ischemia, severe vascular disease with calcification of the carotid siphons bilaterally. LABS: Reviewed in the chart. White count of 15. Creatinine 1.3. BUN 16. Blood glucose 355. ASSESSMENT AND PLAN: 1. More persistent headache over the last 1 month. Etiology is uncertain. She denies typical features of migraine. It could be related to a rebound high blood pressure as her blood pressure was elevated above 200 on admission. She describes it as somewhat sinus related, though the sinuses appeared clear on recent CT scan. Given the more persistent nature of the headache as well as her cancer history, I will go ahead and order a MRI of the brain with and without contrast. Continue symptomatic therapy. Headache is improved currently. 2. Episodes of dizziness, which sound most like postural lightheadedness and orthostasis. She has had significant orthostasis documented this hospitalization again. I would continue symptomatic therapy. Continue telemetry monitoring. Note was made of severe vascular disease with calcification of the carotid siphons bilaterally on recent head CT. Thank you for the consultation. cc: MD Shai Elizabeth MD
[2019-08-20] MEDS: HUMALOG SUBQ SCH ×4 (06:33→22:19)
[2019-08-20] MEDS: LOVENOX SUBQ SCH (06:33)
[2019-08-20] MEDS: 1/2 NS 1,000 ML IV SCH ×2 (07:31→16:02)
[2019-08-20] MEDS: NORCO-5 PO PRN ×3 (08:27→22:17)
[2019-08-20] MEDS: LEXAPRO PO SCH (08:30)
[2019-08-20] MEDS: PROTONIX PO SCH (08:30)
[2019-08-20] MEDS: ATIVAN PO SCH ×3 (08:30→22:17)
[2019-08-20] MEDS: LANTUS INSULIN SUBQ SCH (08:30)
[2019-08-20] MEDS: NICODERM PATCH TD SCH (08:30)
[2019-08-20] MEDS: LEVAQUIN 750 MG/D5W 750 MG/150 ML IVPB IV SCH (10:54)
--- NOTE | 2019-08-20 12:06 | Diag Imaging Result Doc PS360 ---
EXAM: CT ABD/PELVIS W/PO AND IV CON INDICATION: severe weight loss,H/O pancreatic cyst TECHNIQUE: This exam was performed using automated exposure control, adjustment of mA or kV according to patient size, and/or use of iterative reconstruction technique. COMPARISON: 10/18/2017 FINDINGS: There is mild patchy airspace consolidation at both lung bases suggesting pneumonia. The gallbladder, liver, spleen, and adrenal glands are unremarkable. There is stable diffuse pancreatic atrophy. No discrete pancreatic mass or cyst in the identified. Both kidneys exhibit a very lobulated contour similar to previous studies indicating persistent lobulation or renal cortical scarring. There is right renal atrophy. The left renal pelvis is somewhat more prominent than the previous study. However, the ureter is not dilated. This is may simply be due to increased urine output. The urinary bladder is grossly unremarkable. There has been a prior hysterectomy. There is abundant stool in the colon suggesting constipation. There are a few colonic diverticula but there is no evidence of diverticulitis. No bowel wall thickening or bowel obstruction is identified. The remainder of the GI tract is grossly unremarkable. No free abdominal gas or free fluid is identified. IMPRESSION: 1.Patchy airspace consolidation at both lung bases suggesting pneumonia. 2.Diffuse pancreatic atrophy that is stable. No discrete pancreatic mass or cyst is identified. 3.Somewhat prominent left renal pelvis as compared to the previous study that may simply be due to increased urine output as compared to previous study. Please correlate clinically. 4.Suggestion of constipation. 5.Other incidental/nonacute findings detailed above. Electronically signed by Grayson Vazquez 08/20/2019 12:03 PM
--- NOTE | 2019-08-20 13:23 | PROGRESS NOTE ---
DATE: 08/20/2019 Ms. Rivera continues to be having dizziness and headaches. She was evaluated by the neurologist yesterday. MRI of the brain was done, which is noncontributory. We do not have any clue about her significant weight loss, part of it could be because of uncontrolled diabetes. 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 We are going to do the abdomen and pelvic CT on her. Overall condition is otherwise stable. She is recovering from pneumonia and getting IV Levaquin. cc: Shai Hendricks MD
--- NOTE | 2019-08-20 14:13 | PROGRESS NOTE ---
DATE: 08/20/2019 Ms. Rivera reports persistent headache. This morning, she describes the headache as mostly pounding and throbbing across both sides of her head, particularly prominent across the forehead bilaterally. She reports she is dizzy, sometimes worse when she sits up or stands. Dizziness is mostly lightheadedness without features of vertigo, based on her description this morning. She presented with systolic blood pressure of 205. Recent systolic blood pressures have ranged 130s to 160s. She has been afebrile. Brain MRI done with and without contrast was unremarkable. Home medicines included lorazepam. We do not have urine drug screen reported this admission. Here, she has been receiving hydrocodone 5 mg as needed for headache with 3 doses charted in the last 24 hours. She reports caffeine intake is substantial, but variable, 3 or more cups of coffee in the morning, 1 or 2 glasses of tea at midday, possibly other. We briefly discussed analgesic rebound/medication overuse headache syndrome and other potential explanations for exacerbation of headache including elevated blood pressure, caffeine effects, other medications, combinations of effects. Negative MRI is reassuring and I do not think we need further workup now. I encouraged her to be aggressive with management of her blood pressure and to consider very slowly moderating her caffeine intake. If those steps are not sufficient to provide adequate headache control, we might consider more specific management, possibly a trial with topiramate. I encouraged her to be careful with her analgesics. Finally, I offered to see her as an outpatient for headache management in the future if needed. Thanks for asking Neurology to see Ms. Rivera. cc: MD Shai Fox III, MD MTDD
[2019-08-21] MEDS: 1/2 NS 1,000 ML IV SCH (05:10)
[2019-08-21] MEDS: LOVENOX SUBQ SCH (05:11)
[2019-08-21] MEDS: HUMALOG SUBQ SCH ×4 (06:42→21:15)
[2019-08-21] MEDS: NORCO-5 PO PRN ×2 (07:26→15:35)
[2019-08-21 08:26] LABS: CALCIUM 9.6 mg/dL (8.8-10.2); CREATININE 1.3 mg/dL (0.5-0.9); POTASSIUM 4.3 mmol/L (3.5-5.1)
[2019-08-21] MEDS: PROTONIX PO SCH (09:22)
[2019-08-21] MEDS: LANTUS INSULIN SUBQ SCH (09:22)
[2019-08-21] MEDS: LEVAQUIN 750 MG/D5W 750 MG/150 ML IVPB IV SCH (09:22)
[2019-08-21] MEDS: ATIVAN PO SCH ×3 (09:22→21:15)
[2019-08-21] MEDS: LEXAPRO PO SCH (09:22)
[2019-08-21] MEDS: NICODERM PATCH TD SCH (09:22)
[2019-08-21] MEDS: CLINIMIX E 4.25%-5% SOLUTION 1,000 ML IV SCH (09:23)
[2019-08-21] MEDS: BENADRYL PO PRN (11:37)
--- NOTE | 2019-08-21 11:56 | PROGRESS NOTE ---
DATE: 08/21/2019 Ms. Rivera is doing somewhat better. Her vital signs are stable. She fell yesterday. She was seen by the neurologist yesterday. Her electrolytes are stable. Creatinine is 1.3. She had a CT scan of the abdomen and pelvis, which revealed pulmonary airspace consolidation at both lung bases, diffuse pancreatic atrophy, and some constipation and lobulation in both kidneys, indicating foetal lobulation or renal cortical scarring. We are going to give her Glucerna, and start some Clinimix on her, and get a GI consultation for possible colonoscopy as she has significant amount of weight loss. -1 cc: Shai Hendricks MD MTDD
[2019-08-21] MEDS ORDERED: GOLYTELY PO ONE (14:00)
--- NOTE | 2019-08-21 14:02 | GASTROENTEROLOGY CONSULTATION ---
DATE: 08/21/2019 REASON FOR CONSULT: Weight loss. HISTORY OF PRESENT ILLNESS: Ms. Rivear is a 63-year-old, female with a history of diabetes, hypertension, and peripheral neuropathy. She was admitted to the hospital on 08/18/2019 with complaints of severe headache, weakness, weight loss, and shortness of breath. The patient mentioned that she has lost approximately 30 pounds in the last 3 to 4 months. She mentioned that she had severe headache, blurred vision, and dizziness, and has been having frequent falls at home. She was recently admitted to the hospital for orthostatic hypotension. GI has been consulted for her weight loss. PAST MEDICAL HISTORY: Diabetes, hypertension, neuropathy, headaches, fall. PAST SURGICAL HISTORY: Tubal ligation, section, total hysterectomy, and lumpectomy from the right breast which was followed by radiation by Dr. Milian in [place]. SOCIAL HISTORY: Patient is a . She has 3 kids. She smokes about a pack of cigarettes per day. Drinks alcohol occasionally and denies any illicit drugs. DRUG ALLERGIES: She is allergic to enalapril, lisinopril, and morphine. FAMILY HISTORY: Sister has Hodgkin's lymphoma. Mother had dementia and Alzheimer's. REVIEW OF SYSTEMS: As per HPI. Otherwise, 12 point review of systems is negative. PHYSICAL EXAMINATION: Vital Signs: Temperature 98.5, pulse 77, respirations 18, blood pressure 186/87, oxygen saturation 98% on room. Her weight is 113 pounds, BMI of 18.2 kg/m2. General: She is alert, oriented x3. Answering questions appropriately and in no acute distress. HEENT: Pale conjunctivae. No icterus. PERRL. Neck: Supple. Lungs: Clear to auscultation in the anterior egan. Cardiovascular: Regular rate and rhythm. Abdomen: Soft, nontender, nondistended. Active bowel sounds heard in all 4 quadrants. Extremities: No clubbing, no cyanosis, no edema. Pedal pulses 2+ present bilaterally. Neurologic: She is alert and oriented x3. Nonfocal. Cranial nerves 2-12 grossly intact. LABS: WBCs are 15.68, RBCs 4.85, hemoglobin 15.1, hematocrit 44.6, platelet count 308,000. These labs are from 08/18/2019. Chemistry: Sodium is 137, potassium 4.3, chloride 97, carbon dioxide is 27, anion gap 13, BUN 21, creatinine 1.3, glucose 107, calcium 9.6. The patient's chest x-ray on 07/19/2019 showed small lingular infiltrate which may represent pneumonia. Her head CT on 07/19/2019 showed no acute disease or changes from the prior. The patient's brain MRI showed chronic ischemic microvascular changes. No evidence of acute disease. Patient's abdomen and pelvis CT has shown patchy airspace consolidation at both lung bases, suggesting pneumonia. Diffuse pancreatic atrophy that is stable. No discrete pancreatic mass or cyst identified. Somewhat prominent left renal pelvis as compared to the previous study that may simply be due to the increased urine output as compared to previous study. Suggestion of constipation. IMPRESSION: 1. Weight loss. 2. Pneumonia. 3. Constipation. 4. Diabetes. 5. Peripheral neuropathy. 6. Fall. PLAN: Ms. Rivera is a 63-year-old, female who has been in the hospital since 08/18, GI has been consulted for her weight loss. We plan to do an EGD and a colonoscopy to find out the cause of her weight loss. The patient is currently on GI prophylaxis, Protonix 40 mg p.o. daily. She is also on antibiotic, Levaquin, and is receiving Clinimix for her nutrition. Further plan of care will be based on the EGD and colonoscopy findings. Discussed the risks, benefits, and alternatives of the procedure to the patient. The patient acknowledges understanding of the plan of care. We will continue to monitor the patient and follow the plan of care per PCP. This plan was discussed with Dr. Francois. Thank you for your consult. Please call us for any further questions or concerns. Dictated by AMELIA Johnson for Matt Francois MD cc: MD Shai Pemberton MD I have seen and examined the patient myself and I agree with the above plan of care. I have discussed the above with the patient and all questions were answered. Please call us with any questions or concerns. [facility], [place]
--- NOTE | 2019-08-21 20:43 | PROGRESS NOTE ---
DATE: 08/21/2019 Ms. Rivera reports headache is improved. She is up, busy around the bedside. I reviewed suggestion from yesterday that she be aggressive with blood pressure control, consider slowly moderating her caffeine intake, and follow headache course clinically. If headache persists, we can consider more specific management. Thanks again for asking Neurology to see Ms. Rivera. cc: MD Shai Fox III, MD MTDD
[2019-08-22] MEDS: NORCO-5 PO PRN ×2 (00:45→15:29)
[2019-08-22] MEDS: LOVENOX SUBQ SCH (05:17)
[2019-08-22] MEDS: HUMALOG SUBQ SCH ×4 (06:00→20:48)
[2019-08-22 07:59] LABS: AGAP 13; BUN 13 mg/dL (8-22); CHLORIDE 99 mmol/L (98-107); COSMO 280; CREATININE 0.9 mg/dL (0.5-0.9); ESTIMATED GFR > 60; GLUCOSE 179 mg/dL (70-104); POTASSIUM 4.2 mmol/L (3.5-5.1); SODIUM 138 mmol/L (136-145); TCO2 26 mmol/L (25-35)
[2019-08-22] MEDS ORDERED: MYLICON DROPS ONE (08:57)
[2019-08-22] MEDS ORDERED: DIPRIVAN 1% ONE (09:14)
[2019-08-22] MEDS ORDERED: XYLOCAINE-MPF 2% ONE (09:15)
[2019-08-22] MEDS ORDERED: FENTANYL ONE (09:15)
--- NOTE | 2019-08-22 09:55 | ENDOSCOPY OPERATIVE NOTE ---
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 PROCEDURE PERFORMED: EGD w/ biopsy MEDICATIONS: Per Anesthesia TOPICAL ANESTHETIC: CONSENT: The patient understands the risks and benefits of the procedure and understands that these r isks include, but are not limited to: sedation, allergic reaction, infection, perforation and/or bleeding. Alternative means of evaluation and treatment include, among others: physical exam, x-rays, and/or surgical intervention. The patient elects to proceed with this endoscopic procedure. HISORY AND PHYSICAL: 08/22/2019 DESCRIPTION OF PROCEDURE: During intra-op preparation period all mechanical and medical equipment was checked for proper function. Hand hygiene and appropriate measures for infection prevention was taken. After the risks, benefits and alternatives of the procedure were thoroughly explained, Informed consent was verified, confirmed and timeout was successfully executed by the treatment team. The patient was anesthetized with topical anesthesia and the [id number]-[id number] ([id number]) and [id number] ([id number]) endoscope was introduced through the mouth and advanced to the seco nd portion of the duodenum. Retroflexion was performed in the stomach and revealed no abnormalities. The gastroscope was then slowly withdrawn and removed. ESOPHAGUS: The mucosa of the esophagus appeared normal. The z-line was noted at 45cm from the incis ors. The z-line appeared normal. STOMACH: Mild gastritis (inflammation) was found in the gastric body and gastric antrum. A biopsy wa s performed using cold forceps. An erosion was found in the gastric antrum. DUODENUM: The duodenum was normal. A biopsy was performed using cold forceps. Sample sent for histo logy. SPECIMENS REMOVED: Yes ADVERSE EVENTS: There were no complications. POSTOPERATIVE DIAGNOSIS: 1. The mucosa of the esophagus appeared normal 2. The z-line was noted at 45cm from the incisors 3. Gastritis (inflammation) was found in the gastric body and gastric antrum; biopsy was performed 4. Erosion was found in the gastric antrum 5. The duodenum was normal; biopsy was performed RECOMMENDATIONS: 1. Await biopsy results 2. Start omeprazole 20mg PO daily 3. Avoid NSAIDs/blood thinners 4. Continue to colonoscopy procedure REPEAT EXAM: Michael Victor MD eSigned: Michael Victor MD 08/22/2019 9:54 AM cc: PATIENT NAME: Juli Rivera MR#: [id number]
--- NOTE | 2019-08-22 10:01 | ENDOSCOPY OPERATIVE NOTE ---
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 PROCEDURE PERFORMED: Colonoscopy, diagnostic MEDICATIONS: Per Anesthesia PREP TYPE: GoLytely
[2019-08-22] MEDS: PROTONIX PO SCH (10:16)
[2019-08-22] MEDS: LEVAQUIN 750 MG/D5W 750 MG/150 ML IVPB IV SCH (10:16)
[2019-08-22] MEDS: LANTUS INSULIN SUBQ SCH (10:16)
[2019-08-22] MEDS: NICODERM PATCH TD SCH (10:16)
[2019-08-22] MEDS: LEXAPRO PO SCH (10:16)
[2019-08-22] MEDS: ATIVAN PO SCH ×3 (10:17→20:48)
[2019-08-22] MEDS: CLINIMIX E 4.25%-5% SOLUTION 1,000 ML IV SCH (10:20)
--- NOTE | 2019-08-22 19:05 | PROGRESS NOTE ---
DATE: 08/22/2019 SUBJECTIVE: Ms. Rivera had the endoscopy procedures this morning. She had EGD and colonoscopy, which revealed the presence of internal hemorrhoids, some diverticula and some gastritis; however, no evidence of malignancy is noted. We still cannot rule out flat lesions, as per Dr. Victor. She is still having some dizzy spells. OBJECTIVE: Her vital signs are stable. She is afebrile. Blood pressure is 158/77. ASSESSMENT AND PLAN: She has bilateral pneumonia and we are going to repeat the chest x-ray. In the meantime, we will continue the intravenous Levaquin. -8 cc: Shai Hendricks MD
[2019-08-23] MEDS: CLINIMIX E 4.25%-5% SOLUTION 1,000 ML IV SCH ×2 (00:34→10:47)
[2019-08-23] MEDS: NORCO-5 PO PRN ×3 (03:29→21:17)
[2019-08-23] MEDS: LOVENOX SUBQ SCH (05:57)
[2019-08-23] MEDS: HUMALOG SUBQ SCH ×4 (06:33→21:17)
--- NOTE | 2019-08-23 09:41 | Diag Imaging Result Doc PS360 ---
EXAM: CHEST-2 VIEWS HISTORY: pneumonia follow up TECHNIQUE: Two views COMPARISON: 08/18/2019 FINDINGS: The lungs are hyperexpanded. The pulmonary vessels are small. No cardiomegaly. Decrease in the left lingular infiltrate. No pleural effusions. There are surgical clips in the right breast. IMPRESSION: 1.Emphysema 2.Improvement in the lingular infiltrate in the left upper lobe Electronically signed by Chaitanya Strong 08/23/2019 9:38 AM
[2019-08-23] MEDS: ATIVAN PO SCH ×3 (10:48→21:17)
[2019-08-23] MEDS: LEXAPRO PO SCH (10:48)
[2019-08-23] MEDS: PROTONIX PO SCH (10:48)
[2019-08-23] MEDS: LEVAQUIN 750 MG/D5W 750 MG/150 ML IVPB IV SCH (10:49)
[2019-08-23] MEDS: NICODERM PATCH TD SCH (10:49)
[2019-08-23] MEDS: LANTUS INSULIN SUBQ SCH (10:50)
[2019-08-23] MEDS: DULERA 200 MCG/5 MCG INHALER INH SCH ×2 (11:54→19:49)
--- NOTE | 2019-08-23 18:50 | PROGRESS NOTE ---
DATE: 08/23/2019 SUBJECTIVE: A 63-year-old white female patient, admitted with significant headache, blurred vision and fall. The patient also had significant weight loss. Found to have bilateral pneumonia. The patient is complaining of cough and chest congestion. At times, wheezing. The patient claims she was doing much better with Dulera, and I am going to resume it. She denied any dysuria or hematuria. No diarrhea, blood or mucus in the stool. No dysphagia or odynophagia. The patient is on IV antibiotics, tolerating it well. Known case of diabetes mellitus, on insulin. PAST MEDICAL HISTORY: Significant for diabetes, orthostatic hypotension, headache, weight loss. MEDICATIONS: Her current medications noted. Patient history and physical reviewed. OBJECTIVE: Vital signs noted. Head atraumatic, normocephalic. [place] conjunctivae. Anicteric sclerae. Extraocular muscle movement normal. Fundus cannot be penetrated. Good oral hygiene. No tonsillopharyngeal congestion or exudate. Ears and nose benign. Neck supple. No JVD, thyromegaly or lymphadenopathy.Chest: Bilateral good air entry present. Bibasilar crepitations. CVS: S1 and S2 heard. Abdomen soft, nontender. Bowel sounds present. Extremities: No cyanosis, clubbing or acute DVT. PROP ATTENDANT: Alert, awake, able to move all 4 limbs. ASSESSMENT: 1. Consideration of bilateral pneumonia, on Levaquin. Clinically doing better. Her esophagogastroduodenoscopy and colonoscopy result reviewed. 2. Weight loss. 3. Gastritis and reflux disease. PLAN: I am going to resume her Dulera. Lab data done yesterday noted. We will continue the rest of the treatment and close observation. Her TSH was normal. Overall plan discussed with the patient and she is in agreement. cc: MD Shai Barry MD
[2019-08-24] MEDS: CLINIMIX E 4.25%-5% SOLUTION 1,000 ML IV SCH ×2 (05:50→11:03)
[2019-08-24] MEDS: LOVENOX SUBQ SCH (05:50)
[2019-08-24] MEDS: HUMALOG SUBQ SCH ×4 (06:12→21:17)
[2019-08-24] MEDS: LEVAQUIN 750 MG/D5W 750 MG/150 ML IVPB IV SCH ×2 (08:37→11:03)
[2019-08-24] MEDS: NICODERM PATCH TD SCH (08:38)
[2019-08-24] MEDS: ATIVAN PO SCH ×3 (08:38→21:06)
[2019-08-24] MEDS: LEXAPRO PO SCH (08:38)
[2019-08-24] MEDS: PROTONIX PO SCH (08:38)
[2019-08-24] MEDS: LANTUS INSULIN SUBQ SCH (08:38)
[2019-08-24] MEDS: DULERA 200 MCG/5 MCG INHALER INH SCH ×2 (08:50→19:50)
--- NOTE | 2019-08-24 11:17 | PROGRESS NOTE ---
DATE: 08/24/2019 SUBJECTIVE: Ms. Rivera is doing some better. The patient is still having cough and scanty sputum production. No high-grade fever or chills. The patient claims she was not able to sleep well last night. Oral intake is fair. No nausea or vomiting. No diarrhea, blood or mucus in the stool. Chest x-ray done yesterday did show some improvement. OBJECTIVE: Her vital signs noted. Neck is supple. No JVD. Lungs: Bilateral occasional wheezing. CVS: S1 and S2 heard. Abdomen: Soft, nontender. Bowel sounds present. RECEIVER: Alert, awake. Able to move all 4 limbs. PROBLEM LIST: 1. Chronic obstructive pulmonary disease exacerbation. 2. Bilateral pneumonia, gradually improving. 3. Diabetes mellitus. 4. Back pain. 5. Gastritis and reflux disease. PLAN: We will continue current treatment. Close observation. Overall plan discussed at length with the patient and she is in agreement. If clinical condition continued to improve, we will plan discharging patient home tomorrow. cc: MD Shai Barry MD
[2019-08-24] MEDS: NORCO-5 PO PRN (14:46)
--- NOTE | 2019-08-24 18:40 | GASTROENTEROLOGY PROGRESS NOTE ---
DATE: 08/23/2019 SUBJECTIVE: Ms. Rivera is a 63-year-old female, resting in bed. She has denied any nausea, vomiting, or abdominal pain. The patient also denied any bowel movements today. OBJECTIVE: Vital Signs: Temperature 97.8 degrees, pulse 84, respirations 19, blood pressure 157/76, oxygen saturation 98% on room air. General: She is alert, oriented x3, and in no acute distress. HEENT: Pale conjunctivae. No icterus. PERRL. Neck: Supple. Lungs: Clear to auscultation in the anterior egan. Cardiovascular: Regular rate and rhythm. Abdomen: Soft, nontender, nondistended. Active bowel sounds heard in all 4 quadrants. Extremities: No clubbing. No cyanosis. No edema. Pedal pulses 2+ present bilaterally. Neurologic: She is alert and oriented x3. LABS: From 08/18, WBC 15.68, RBC 4.85, hemoglobin 15.1, hematocrit 44.6, platelet count 308,000. Chest x-ray showed emphysema and improvement in the lingular infiltrate in the left upper lobe. IMPRESSIONS AND PLAN: 1. Weight loss. 2. Pneumonia. 3. Constipation. 4. Diabetes. 5. Peripheral neuropathy. 6. Falls. PLAN: Ms. Rivera is a 63-year-old female who was in the hospital since 08/18. GI is following her for a weight loss. We did an EGD and a colonoscopy on 08/22 and the EGD findings were mucosa of the esophagus appeared normal. Gastritis was found in the gastric body and the gastric antrum. Biopsy was performed. Erosion was found in the gastric antrum. The duodenum was normal. Biopsy was performed. Colonoscopy finding were mild nonbleeding diverticulosis noted in the sigmoid colon and small internal grade 2 hemorrhoids. The patient is currently on GI prophylaxis, Protonix 40 mg p.o. daily. The patient is receiving antibiotic, Levaquin. Her diabetes is managed by Humalog on a sliding scale and Lantus 35 units daily. We will continue to monitor the patient and follow the plan of care per PCP. This plan was discussed with Dr. Tyler. Please call us for any further questions or concerns. Dictated by AMELIA Johnson for Jose D Tyler MD cc: MD Shai Roger MD [facility]
--- NOTE | 2019-08-24 21:50 | GASTROENTEROLOGY PROGRESS NOTE ---
DATE: 08/24/2019 SUBJECTIVE: Ms. Rivera is a 63-year-old female resting in bed. She has denied any nausea, vomiting, or abdominal pain. The patient mentioned being able to tolerate her diet well. OBJECTIVE: Vital Signs: Temperature 98.5 degrees, pulse of 100, respirations 19, blood pressure of 129/60, oxygen saturation 97%. She is on room air. Her weight is 113 pounds. BMI is 18.2 kg/m2. General: She is alert, oriented x3, and in no acute distress. HEENT: Pale conjunctivae. No icterus. PERRL. Neck: Supple. Lungs: Clear to auscultation in the anterior egan. Cardiovascular: Regular rate and rhythm. Abdomen: Soft, nontender, nondistended. Cardiovascular: Patient is tachycardic. Abdomen: Is soft, nontender, nondistended. Active bowel sounds heard in all 4 quadrants. Extremities: No clubbing, no cyanosis, no edema. Pedal pulses 2+ present bilaterally. Neurologic: She is alert, oriented x3. LAB: The patient's hematology from 08/18: WBC is 15.68, RBC 4.85, hemoglobin 15.1, hematocrit 44.6, platelet count is 308,000. Her chemistries from 08/22: Sodium 138, potassium 4.2, chloride 99, carbon dioxide 26, anion gap 13, BUN 13, creatinine 0.9, glucose 179, calcium 9.0. The patient's chest x-ray on 08/23 showed emphysema, improvement in the lingular infiltrate in the left upper lobe. IMPRESSION AND PLAN: 1. Weight loss. 2. Pneumonia. 3. Constipation. 4. Diabetes. 5. Peripheral neuropathy. 6. Falls. 7. Smoker 8. Gastritis 9. Diverticulosis 10. Hemorrhoids PLAN: Ms. Rivera is a 63-year-old female who is in the hospital since 08/18. Gastroenterology is following her for weight loss. We did an EGD and a colonoscopy. The patient had some gastritis, diverticulosis and hemorrhoids. The patient is currently on a gastrointestinal prophylaxis, Protonix 40 mg daily. She is receiving antibiotics Levaquin for her pneumonia. For her diabetes, she is receiving Lantus 35 units and Humalog as per sliding scale. As per primary care physician, the plan is to discharge the patient tomorrow. We will continue to monitor the patient and follow the plan of care per PCP. If the patient gets discharged we will follow her in 2-4 weeks as an outpatient at our clinic. This plan was discussed with Dr. Tyler. Please call us for any further questions or concerns. Dictated by AMELIA Johnson for Jose D Tyler MD cc: MD Shai Roger MD [facility]
[2019-08-25] MEDS: NORCO-5 PO PRN ×3 (00:17→16:52)
[2019-08-25] MEDS: LOVENOX SUBQ SCH (06:59)
[2019-08-25] MEDS: HUMALOG SUBQ SCH ×4 (06:59→21:35)
[2019-08-25] MEDS: DULERA 200 MCG/5 MCG INHALER INH SCH ×2 (08:16→19:44)
--- NOTE | 2019-08-25 09:07 | PROGRESS NOTE ---
DATE: 08/25/2019 Ms. Rivera's pneumonia is still not cleared completely. She is getting IV Levaquin. Overall condition is unchanged. Since there is a history of weight loss, we will go ahead and do the CT scan of the chest to rule out any evidence of malignancy. In the meantime, we will continue the antibiotic. cc: Shai Hendricks MD
[2019-08-25] MEDS: ATIVAN PO SCH ×3 (09:34→21:32)
[2019-08-25] MEDS: LANTUS INSULIN SUBQ SCH (09:34)
[2019-08-25] MEDS: LEXAPRO PO SCH (09:35)
[2019-08-25] MEDS: PROTONIX PO SCH (09:35)
[2019-08-25] MEDS: NICODERM PATCH TD SCH (09:35)
[2019-08-25] MEDS: LEVAQUIN 750 MG/D5W 750 MG/150 ML IVPB IV SCH (09:44)
--- NOTE | 2019-08-25 11:55 | Diag Imaging Result Doc PS360 ---
EXAM: CT THORAX W/CONTRAST 08/25/2019 HISTORY: lung abnormality TECHNIQUE: This exam was performed using automated exposure control, adjustment of mA or kV according to patient size, and/or use of iterative reconstruction technique. COMMENT: The current study is compared with the previous examination of 01/28/2019. The right thyroid lobe is enlarged and inhomogeneous as it was on the previous study. There is right paratracheal adenopathy which appears to have diminished slightly since the previous study. There are no filling defects in the pulmonary arteries. The thoracic aorta is not distended and there is no evidence of dissection. There are coronary artery calcifications. There are no abnormal fluid collections. The visualized portions of the abdomen are similar in appearance to the previous study. The regional skeleton appears to be intact. There are some platelike and fibrotic appearing opacities in the right middle lobe and lingula similar in appearance to the previous examination although there is some improvement in the lingula since the previous study. There are multiple nodular and coarsely nodular opacities in the lower lobes bilaterally most notably on image 101 and the left lower lobe, 109 in the right lower lobe and 112 in the left costophrenic sulcus. These abnormalities were also present on the abdominal study of 08/20/2019. IMPRESSION: Multiple basilar opacities bilaterally. The nodular in nature of some of these opacities raises the possibility of metastatic disease given the patient's history. Short-term follow-up is recommended to ensure their resolution or stability. Electronically signed by Arian Kim 08/25/2019 11:52 AM
--- NOTE | 2019-08-25 12:18 | GASTROENTEROLOGY PROGRESS NOTE ---
DATE: 08/25/2019 SUBJECTIVE: Ms. Rivera is a 63-year-old, female, resting in bed. The patient has denied any nausea, vomiting, or abdominal pain. OBJECTIVE: Vital Signs: Temperature 98.3 degrees, pulse 77, respirations 16, blood pressure 151/78, oxygen saturation 96% on room air. The patient's weight is 113 pounds. BMI is 18.2 kg/m2. General: She is alert, oriented x3, and in no acute distress. HEENT: Pale conjunctivae. No icterus. PERRL. Neck: Supple. Lungs: Mild wheezing heard in the anterior egan. Cardiovascular: Regular rate and rhythm. Abdomen: Soft, nontender, nondistended. Active bowel sounds heard in all 4 quadrants. Extremities: No clubbing, no cyanosis, no edema. Pedal pulses 2+ present bilaterally. Neurologic: She is alert and oriented x3. Labs: The patient has no recent labs. CT scan showed result showed multiple basilar opacities bilaterally. The nodular in nature of some of these opacities raises the possibility of metastatic disease given the patient's history. IMPRESSION: 1. Weight loss. 2. Pneumonia. 3. Constipation. 4. Diabetes. 5. Peripheral neuropathy. 6. Falls. 7. A smoker. 8. Gastritis. 9. Diverticulosis. 10. Hemorrhoids. PLAN: Ms. Rivera is a 63-year-old, female. GI has been following her for her weight loss. We did an EGD and a colonoscopy. The patient had gastritis, diverticulosis, and hemorrhoids. The patient is currently on GI prophylaxis, Protonix 40 mg daily. The patient is on antibiotics Levaquin for her pneumonia. Her constipation is getting resolved. Her diabetes is managed by Lantus 35 units and Humalog as per sliding scale. We will continue to provide supportive care to the patient and follow the plan of care per PCP. This plan was discussed with Dr. Francois. Please call us for any further questions or concerns. Dictated by AMELIA Johnson for Matt Francois MD cc: MD Shai Pemberton MD I have seen and examined the patient myself and I agree with the above plan of care. Discussed the above with the patient and all questions were answered. [facility]
[2019-08-26] MEDS: NORCO-5 PO PRN ×2 (04:03→21:02)
[2019-08-26] MEDS: HUMALOG SUBQ SCH ×4 (06:23→20:09)
[2019-08-26] MEDS: LOVENOX SUBQ SCH (06:25)
[2019-08-26] MEDS: BENADRYL PO PRN (06:25)
[2019-08-26] MEDS: DULERA 200 MCG/5 MCG INHALER INH SCH ×2 (07:30→20:27)
[2019-08-26] MEDS: ATIVAN PO SCH ×3 (09:40→21:01)
[2019-08-26] MEDS: LANTUS INSULIN SUBQ SCH (09:41)
[2019-08-26] MEDS: LEVAQUIN 750 MG/D5W 750 MG/150 ML IVPB IV SCH (09:42)
[2019-08-26] MEDS: LEXAPRO PO SCH (09:42)
[2019-08-26] MEDS: PROTONIX PO SCH (09:42)
[2019-08-26] MEDS: NICODERM PATCH TD SCH (09:42)
--- NOTE | 2019-08-26 12:22 | PROGRESS NOTE ---
DATE: 08/26/2019 Ms. Rivera is in about the same general condition. The CT scan of the chest revealed multiple nodules in the lung, multiple basilar opacities bilaterally that is suggestive of metastatic pulmonary disease. She has a history of breast cancer. There is a small knot in the right breast, which she says it is scar tissue. The mammogram has not been done lately. I am going to ask Dr. Hernandez to see her today. cc: Shai Hendricks MD
[2019-08-27] MEDS: HUMALOG SUBQ SCH ×4 (07:54→23:02)
[2019-08-27] MEDS: LOVENOX SUBQ SCH (07:54)
[2019-08-27] MEDS: DULERA 200 MCG/5 MCG INHALER INH SCH ×2 (08:00→19:28)
--- NOTE | 2019-08-27 09:47 | MAMMOGRAPHY RESULT DOCUMENT ---
TOMOSYNTHESIS DIAG BILATERAL 08/27/2019 H/o Rt Breast cancer, pt has poss lung metastasis COMPARISON: 02/04/2016 TECHNIQUE: Computer aided detection imaging was used. FINDINGS: There are scattered fibroglandular densities. There is scarring with fat necrosis and dystrophic calcification in the lateral right breast related to a prior lumpectomy. There is a biopsy clip in the anterolateral left breast in the region of the small nodule seen on the previous study, apparently yielding benign pathology. There are no new suspicious abnormalities as compared to previous studies. IMPRESSION: Routine screening mammogram is recommended in 12 months. ACR BI-RADS CATEGORY 2: BENIGN FINDING NOTE: This facility is accredited by the [employer] for Mammography. A mammogram report should not delay biopsy if a dominant or clinically suspicious mass is present. Some cancers are not identified by mammography. Adenosis and dense breasts may obscure any underlying neoplasm Electronically signed by Grayson Vazquez 08/27/2019 9:45 AM
[2019-08-27] MEDS: ATIVAN PO SCH ×3 (10:12→23:01)
[2019-08-27] MEDS: NORCO-5 PO PRN ×2 (10:12→23:26)
[2019-08-27] MEDS: LEXAPRO PO SCH (10:13)
[2019-08-27] MEDS: BENADRYL PO PRN (10:13)
[2019-08-27] MEDS: NICODERM PATCH TD SCH (10:13)
[2019-08-27] MEDS: PROTONIX PO SCH (10:13)
[2019-08-27] MEDS: LANTUS INSULIN SUBQ SCH (10:30)
--- NOTE | 2019-08-27 12:12 | PROGRESS NOTE ---
DATE: 08/27/2019 Ms. Rivera is having multiple pulmonary nodules. We had asked for a consult with Dr. Hernandez. However, Dr. Hernandez cannot see her. She has a history of breast cancer removed from the right side. I am going to get an urgent mammogram and ask for a consult with Dr. Phelan. We will continue to see her closely. Her overall condition is otherwise stable. We may discharge her after the consultation with Dr. Phelan if no further treatments are considered. -4 cc: Shai Hendricks MD
--- NOTE | 2019-08-27 19:38 | HEMO/ONC CONSULTATION ---
DATE: 08/27/2019 ADMITTING PHYSICIAN: Shai Hendricks MD REQUESTING PHYSICIAN: Shai Hendricks MD We appreciate this consult. CHIEF COMPLAINT: Metastatic lung cancer. HISTORY OF PRESENT ILLNESS: Ms. Rivera is a pleasant 63-year-old female with a history of breast cancer, insulin-dependent diabetes mellitus, hypertension who presented to [facility] Emergency Department with complaints of severe headaches, weakness, and weight loss. The patient reports that she has lost approximately 30 pounds in the last 4 months. She also reports that she has been significantly short of breath and has had several falls at home secondary to dizziness. The patient was evaluated and found to have likely pneumonia and begun on antibiotics. She underwent MRI of the brain related to dizziness and falls, which revealed chronic ischemic microvascular changes and no evidence of acute disease. The patient underwent CT of the abdomen and pelvis which revealed patchy airspace consolidation of both lung bases suggesting pneumonia. No masses or evidence of metastasis were seen. The patient underwent CT of the chest which revealed multiple basilar opacities bilaterally nodular in nature, raising the possibility of metastatic disease given the patient's history. We are consulted to rule out lung cancer versus metastasis to the lungs. PAST MEDICAL HISTORY: As in HPI. PAST SURGICAL HISTORY: 1. Tubal ligation. 2. Total abdominal hysterectomy. 3. Right breast lumpectomy followed by radiation oncologist at the time was Dr. Donovan Milian of [place]. SOCIAL HISTORY: The patient smokes 1 pack cigarettes daily. She drinks 1 to 2 beer beers per day. She does not use illicit drugs. FAMILY HISTORY: Negative for any hematologic or oncologic disease. REVIEW OF SYSTEMS: A 14 point review of systems was obtained and is negative except for as mentioned in the HPI. PHYSICAL EXAMINATION: Ms. Rivera is a 63-year-old female who is thin appearing but in no acute distress.Vital Signs: Temperature 97.7 degrees, blood pressure 155/62, heart rate 65, respirations 18, O2 saturation is 98% on room air. HEENT: Normocephalic, atraumatic. Mucous membranes are slightly pale and moist. Sclerae are anicteric. Extraocular movements intact. Neck: Supple. Lungs: With prolonged expiratory phase. CV: S1, S2 is heard. No murmurs, rubs or gallops. Abdomen: Nondistended. Extremities: No clubbing, cyanosis, or edema. Dermatologic: No rashes, bruises or lesions. Neurologic: The patient is awake, alert, oriented x3. He has no focal deficit. Gait is normal. LABORATORY DATA: Hemoglobin 15.1, hematocrit 44.6, white blood cell count is 15.68, platelets 308,000. IMAGING STUDIES: Mammogram is BI-RADS category [address] of the chest reveals multiple basilar opacities, nodular in appearance. ASSESSMENT AND PLAN: 1. Nodular opacities, questionably metastatic disease in a patient with history of breast cancer versus lung cancer primary. We will obtain a bone scan at this time. We will consult pulmonology for bronchoscopy with biopsies. Additionally, we will check a CA-15-3. 2. Bilateral pneumonia. Currently on antibiotics. 3. Diabetes mellitus. Currently on sliding scale insulin. 4. Anxiety. The patient is currently on Ativan, scheduled. 5. Gastroesophageal reflux disease. The patient is on a proton pump inhibitor. 6. Tobacco abuse. The patient is currently wearing a NicoDerm patch. Smoking cessation will be encouraged. 7. We will follow along with you and make further recommendations pending outcomes. The above reflects the history, exam, assessment and plan of Dr. Phelan. Dictated by AMELIA Shore for Rambo Phelan MD cc: AMELIA Shore MD Amit V. Vora, MD
[2019-08-28] MEDS: NORCO-5 PO PRN ×2 (05:34→21:57)
[2019-08-28] MEDS: HUMALOG SUBQ SCH ×4 (07:27→21:58)
[2019-08-28] MEDS: LOVENOX SUBQ SCH (07:27)
[2019-08-28] MEDS: DULERA 200 MCG/5 MCG INHALER INH SCH ×3 (08:19→22:09)
[2019-08-28] MEDS: ATIVAN PO SCH ×3 (08:36→21:57)
[2019-08-28] MEDS: LEXAPRO PO SCH (08:36)
[2019-08-28] MEDS: NICODERM PATCH TD SCH (08:36)
[2019-08-28] MEDS: LANTUS INSULIN SUBQ SCH (08:36)
[2019-08-28] MEDS: PROTONIX PO SCH (08:36)
--- NOTE | 2019-08-28 09:57 | PROVIDER PROGRESS NOTE ---
Progress Note Additional Pulmonary Note: CT chest images reviewed and discussed with Dr. Vazquez from radiology. The nodular changes are too low of a yield for a bronchoscopy. They are borderline obtainable by CT biopsy but at a proximity to risk htting other organs as discussed with radiologists who feel these could also be inflammatory. So best route is to do an out patient PET/ follow up imaging and if PET is highly suggestive of malignancy, Radiology then will attempt a CT biopsy.
--- NOTE | 2019-08-28 10:06 | PROGRESS NOTE ---
DATE: 08/28/2019 Ms. Rivera was seen by AMELIA Baez, for Dr. Phelan, and she is recommending bone scan as well as a possible Pulmonary consult, and are checking CA 15-3. Levaquin did not help the pneumonia. I am going to put her on Zosyn until we get the problem solved. cc: Shai Hendricks MD
[2019-08-28 11:06] LABS: INR 0.93; PROTIME 12.6 Seconds (11.0-16.0)
[2019-08-28 11:07] LABS: PTT 33.2 Seconds (22.3-41.8)
--- NOTE | 2019-08-28 15:27 | Diag Imaging Result Doc PS360 ---
EXAM: BONE SCAN, TOTAL BODY INDICATION: R/o mets TECHNIQUE: 29.1 mCi of technetium 99 MDP was administered intravenously and images of the whole body were obtained in usual fashion after administration. COMPARISON: None. FINDINGS: There is slight increased uptake associated with the L4-5 facet on the right. This appears to correspond to degenerative facet arthropathy that can be seen on a recent CT of the abdomen and pelvis dated 08/25/2019. There is minimal degenerative uptake at the patellofemoral joint on the left and mild right AC joint degenerative uptake. No other focal increased uptake or focal photopenia is identified. There is normal soft tissue uptake and normal excretion of radiotracer by the system. IMPRESSION: Mild degenerative uptake as described above. No abnormal uptake identified to indicate bony metastatic disease. Electronically signed by Grayson Vazquez 08/28/2019 3:24 PM
[2019-08-29] MEDS: LOVENOX SUBQ SCH (06:44)
[2019-08-29] MEDS: HUMALOG SUBQ SCH (06:45)
--- NOTE | 2019-08-29 06:52 | CONSULTATION ---
DATE OF CONSULTATION: 08/28/2019 REQUESTING PROVIDER: Dr. Shai Hendricks. REASON FOR CONSULTATION: Bronchoscopy with biopsy. HISTORY OF PRESENT ILLNESS: This is a 63-year-old female with a medical history of insulin-dependent diabetes mellitus type 2, autoimmune pancreatitis, COPD, ongoing tobacco use, hypertension, hypercholesterolemia, gastroesophageal reflux disease, and breast cancer. She was directly history admitted by Dr. Hendricks with severe headache, weakness, weight loss, and shortness of breath since 08/18/2019. CT abdomen pelvis and without contrast on 08/20/2019 showed patchy airspace consolidation at both lung bases suggesting pneumonia, so she had been treated with Levaquin for 7 days for pneumonia. At the end of the antibiotic therapy, the patient had another CT thorax with contrast on 08/25/2019, which showed multiple basilar opacities bilaterally. The nodule in nature of some of these opacities raises the possibility of metastatic disease given the patient's history so we were consulted for possible bronchoscopy with biopsy. The patient currently just came back from total body bone scan. She reports 40 pound weight loss in the last 3 months with normal appetite. She reports a general nonproductive cough with some production recently. She has chronic nasal congestion, but no fever, chill, nausea, bowel habit change, urination discomfort, chest pain or palpitation. Her recent sputum is green yellowish, but no hemoptysis noted. PAST MEDICAL AND SURGICAL HISTORY: 1. 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 2. COPD with ongoing tobacco abuse. 3. Hypertension. 4. Gastroesophageal reflux disease. 5. Hypercholesterolemia. 6. Breast cancer status post right lumpectomy and radiation 18 years ago. 7. Status post total abdominal hysterectomy and bilateral salpingo-oophorectomy. SOCIAL HISTORY: The patient lives at home with her family. She smokes daily less than 1 pack per day since age of 16. She had tried to quit several times. She drinks alcohol occasionally. She denies any illicit drug use. FAMILY HISTORY: Positive for dementia. ALLERGIES: Enalapril, lisinopril and morphine. REVIEW OF SYSTEMS: A 10-point review of systems was conducted and the pertinent is listed within the HPI, otherwise noncontributory. PHYSICAL EXAMINATION: Vital Signs: Temperature 98.0 degrees, blood pressure 132/75, pulse 76, respiratory rate 17, oxygen saturation 97% on room air. LAB DATA: No labs today. IMAGING DATA: See [facility] for chest CT on 08/25/2019. 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 She has been admitted to the medical floor since 08/18/[address] Hendricks with severe headache, weakness, weight loss, low vision and frequent falls. 1. During this hospital stay she also she also was treated with pneumonia with Levaquin from August 19 to August 26. 2. Multiple nodule opacities in the lower lobes bilaterally with the possibility of metastatic disease. 3. Pneumonia status post antibiotic therapy. 4. COPD with ongoing tobacco abuse. No acute exacerbation noted. PLAN: 1. Dr. Bender already reviewed CT chest images and discussed with the radiologist Dr. Vazquez the current best plan is to do an outpatient PET scan and following imaging if PET scan is highly suggestive of malignancy, then we will obtain a CT biopsy. I did explain our plan to patient. The patient showed understanding, and all questions have been answered. 2. Highly recommend patient to quit smoking. 3. Further recommendations pending hospital course. Thank you for the courtesy of this consult. Dictated by AMELIA Watts for Estela Bender MD cc: AMELIA Watts MD Amit V. Vora, MD [facility]
[2019-08-29] MEDS: DULERA 200 MCG/5 MCG INHALER INH SCH (08:11)
[2019-08-29] MEDS ORDERED: FLONASE NAS SCH (09:00)
[2019-08-29] MEDS: NORCO-5 PO PRN (09:23)
[2019-08-29] MEDS: NICODERM PATCH TD SCH (09:25)
[2019-08-29] MEDS: PROTONIX PO SCH (09:26)
[2019-08-29] MEDS: LEXAPRO PO SCH (09:26)
[2019-08-29] MEDS: ATIVAN PO SCH (09:26)
[2019-08-29] MEDS: LANTUS INSULIN SUBQ SCH (09:26)
[2019-08-29 12:03] VITALS: BP 169/86
--- NOTE | 2019-08-29 16:09 | PROGRESS NOTE ---
DATE: 08/29/2019 SUBJECTIVE: Ms. Rivera is feeling somewhat better. Her lungs still reveal some congestion. INR was 0.93, glucose is still fluctuating. CEA 15.3 has been done and the level is 16. Reference failure is less than 30; usually it is nondiagnostic. We revealed she is feeling better. Pulmonary consult was made. Bone scan is negative and pulmonary consult suggested that they need to get a PET scan before they can do the lung biopsy. I am going to discharge her today. cc: Shai Hendricks MD
--- NOTE | 2019-08-30 15:25 | DISCHARGE SUMMARY ---
ADMISSION DATE: 08/18/2019 DISCHARGE DATE: 08/29/2019 HISTORY: Ms. Rivera, who is a 63-year-old white female, was admitted with recurrent falls, severe dizziness, severe weight loss. DIAGNOSTIC DATA: In the hospital CT scan of the brain did not reveal any acute disease. Chest x- ray initially revealed the presence of a small lingular infiltrate representing pneumonia. Abdominal and pelvic CT revealed the patchy opacities, consolidation at both lung bases. Diffuse pancreatic atrophy, severe constipation. Other chest CT scan revealed presence of multiple basilar opacities bilaterally. They are nodular in nature of some of these opacities raise the possibility of metastatic disease. She had a significant weight loss. Breast mammograms revealed the presence of scattered fibroglandular densities, scarring with fat necrosis and dystrophic calcification is noted in the right breast. No definite evidence of malignancy was noted. Bone scan, body scan nuclear scan revealed mild degenerative disk disease. Otherwise, no abnormal findings noted. COURSE IN THE HOSPITAL: She was admitted with severe dizziness, frequent falls. Neurologic consult was made. No new suggestions were obtained. Orthostatic hypotension has been ruled out and is still considered. The cause of weight loss was not known. It could cause dizziness. GI consult was made after the CT scan of the abdomen and it was decided that she go through endoscopies. She had EGD and colonoscopy performed and non bleeding diverticulosis was noted. Could not rule out flat lesions of less than 1 cm because of the poor prep. An EGD revealed mild gastritis. Biopsy was performed using cold forceps. Erosion was found in gastric antrum. On the CT scan of the lung they found that she had multiple opacities in both lung egan. An oncology consult was made. A bone scan and pulmonary consult was ordered. Bone scan was negative. Pulmonary consult was made by Dr. Bender who suggested that a PET scan be done before a decision for biopsy could be made. And 8 it was decided to do it as an outpatient and we decided to discharge the patient today. She will be given a prescription of Prilosec 20 mg daily. I will see her in the office next week. cc: Shai Hendricks MD
== END 2019-08-29 12:56 | disposition home or self-care (01) | DRG 640 ==
LOC: DIRADM 11:04 → 3N 11:22
PROVIDERS: ADMIT Internal Medicine; ATTEND Internal Medicine